=== PATIENT | male | born 1950 | race Caucasian/White ===

== ENCOUNTER 2017-02-12 10:00 | Emergency (ER) | payer MEDICARE, OTHER ==
--- NOTE | 2017-02-12 10:30 | ERPHSYRPT ---
- History of Present Illness Time Seen by Provider: 02/12/17 10:19 Source: patient, EMS Patient Subjective Stated Complaint: PT WOKE UP WITH MORNING AND COULD NOT GET OUT OF BED. DENIES ANY PAIN AT THIS TIME. PT STATES HE WAS SLIGHTLY CONFUSED THIS MORNING. Triage Nursing Assessment: PT IS ALERT X 2. SKIN IS PINK WARM AND DRY. RESP ARE EVEN AND UNLABORED. SKIN GRASP ARE NORMAL AND EQUAL. WEAKNESS NOTED IN FOOT PUSHES. Physician History: Patient is a 67-year-old male brought in by ambulance from home where the home health nurse saw the patient this morning and thought he needed to be seen for weakness. The patient tells me he woke up this morning with weakness in his legs, feels he was able to stand very well. He denies fever or chills. He denies pain. He denies cough, nausea, vomiting, or diarrhea. He states he has problems urinating due to his prostate. His past medical history is significant for hypertension, BPH, GERD, and 2 strokes last year. He's had his appendectomy the next removed. Timing/Duration: today Severity: moderate Modifying Factors: Improves With: nothing Associated Symptoms: weakness Allergies/Adverse Reactions: No Known Drug Allergies Allergy (Unverified 02/12/17 10:22) Home Medications: Aspirin [Aspir-Low] 81 mg PO DAILY 02/12/17 [History] Lansoprazole [Prevacid] 30 mg PO DAILY 02/12/17 [History] Lisinopril [Lisinopril] 5 mg PO DAILY 02/12/17 [History] Min17/Nettle/Pumpkin/Saw Palme [Prostate Therapy Softgel] 1 each PO DAILY [History] Hx Tetanus, Diphtheria Vaccination/Date Given: Yes Hx Influenza Vaccination/Date Given: Yes (2016) Hx Pneumococcal Vaccination/Date Given: No Immunizations Up to Date: Yes - Review of Systems Constitutional: Weakness Eyes: No Symptoms Ears, Nose, & Throat: No Symptoms Respiratory: No Cough, No Dyspnea Cardiac: No Chest Pain, No Edema, No Syncope Abdominal/Gastrointestinal: No Abdominal Pain, No Nausea, No Vomiting, No Diarrhea Genitourinary Symptoms: No Dysuria Musculoskeletal: No Back Pain, No Neck Pain Skin: No Rash Neurological: No Dizziness, No Focal Weakness, No Sensory Changes Psychological: No Symptoms Endocrine: No Symptoms Hematologic/Lymphatic: No Symptoms Immunological/Allergic: No Symptoms All Other Systems: Reviewed and Negative - Past Medical History Pertinent Past Medical History: Yes Neurological History: Stroke ENT History: No Pertinent History Cardiac History: Hypertension Respiratory History: No Pertinent History Endocrine Medical History: No Pertinent History Musculoskeletal History: No Pertinent History GI Medical History: GERD History: No Pertinent History Psycho-Social History: No Pertinent History Male Reproductive Disorders: Prostate Problems - Past Surgical History Past Surgical History: Yes Neuro Surgical History: No Pertinent History Cardiac: No Pertinent History Respiratory: No Pertinent History Gastrointestinal: Appendectomy Genitourinary: No Pertinent History Musculoskeletal: No Pertinent History Male Surgical History: No Pertinent History - Social History Smoking Status: Former smoker Exposure to second hand smoke: No Drug Use: none Patient Lives Alone: No - Nursing Vital Signs Nursing Vital Signs: Initial Vital Signs Temperature 98.1 F 02/12/17 10:02 Pulse Rate 71 02/12/17 10:02 Respiratory Rate 18 02/12/17 10:02 Blood Pressure 127/83 02/12/17 10:02 O2 Sat by Pulse Oximetry 93 L 02/12/17 10:02 Pain Scale Pain Intensity 0 - Physical Exam General Appearance: no apparent distress, alert Eye Exam: PERRL/EOMI, eyes nml inspection Ears, Nose, Throat Exam: normal ENT inspection, TMs normal, pharynx normal, moist mucous membranes Neck Exam: normal inspection, non-tender, supple, full range of motion Respiratory Exam: normal breath sounds, lungs clear, No respiratory distress Cardiovascular Exam: regular rate/rhythm, normal heart sounds, normal peripheral pulses Rectal Exam: not done Back Exam: normal inspection, normal range of motion, No CVA tenderness, No vertebral tenderness Extremity Exam: normal inspection, normal range of motion, pelvis stable Neurologic Exam: alert, oriented x 3, sr. director II-XII nml as tested, normal mood/ affect, nml cerebellar function, sensation nml, other (short term memory loss), No motor deficits, No sensory deficit Skin Exam: normal color, warm, dry, No rash Lymphatic Exam: No adenopathy SpO2 Interpretation: normal SpO2: 93 Oxygen Delivery: Room Air - Course EKG Interpreted by Me: RATE, Sinus Rhythm, NORMAL AXIS, NORMAL INTERVALS, NORMAL QRS, Non-specific ST Changes (no comp EKG/) - CT Exams Head CT Interpretation: Negative, Tele-radiologist Report, No/Intracranial Hemorrhag , Other (global atrophy, micro-ischemia, remote right cerebellar infarct and lacunar infarcts. Per Dr Priutt.) Ordered Tests: Active Orders 24 hr Category Date Time Status EKG-ER Only STAT Care 02/12/17 10:33 Active IV Insertion STAT Care 02/12/17 10:33 Active HEAD WITHOUT CONTRAST [CT] Stat Exams 02/12/17 10:35 Completed CBC W DIFF Stat Lab 02/12/17 11:30 Completed CMP Stat Lab 02/12/17 11:30 Completed CULTURE,URINE Stat Lab 02/12/17 12:00 Received Lactic Acid Stat Lab 02/12/17 10:33 Completed PROTIME WITH INR Stat Lab 02/12/17 11:30 Completed TROPONIN Q3H Lab 02/12/17 11:30 Completed TROPONIN Q3H Lab 02/12/17 13:45 Ordered TROPONIN Q3H Lab 02/12/17 16:45 Ordered TROPONIN Q3H Lab 02/12/17 19:45 Ordered TROPONIN Q3H Lab 02/12/17 22:45 Ordered UA W/ MICROSCOPIC Stat Lab 02/12/17 12:00 Completed Urine Triage Profile Stat Lab 02/12/17 10:34 Completed Medication Summary Discontinued Medications Generic Name Dose Route Start Last Admin Trade Name Freq PRN Reason Stop Dose Admin Sodium Chloride 1,000 mls @ 999 mls/hr 02/12/17 10:33 02/12/17 10:41 Sodium Chloride 0.9% 1000 Ml IV 02/12/17 11:33 999 mls/hr .Q1H1M STA Administration Sodium Chloride Confirm 02/12/17 10:40 Sodium Chloride 0.9% 1000 Ml Administered 02/12/17 10:41 Dose 1,000 mls @ ud .ROUTE .STK-MED ONE Ceftriaxone Sodium/Dextrose 1 g in 50 mls @ 100 mls/hr 02/12/17 12:40 12:46 Rocephin 1 Gm-D5w 50 Ml Bag IV 02/12/17 13:09 100 mls/hr STAT STA Administration Ceftriaxone Sodium/Dextrose Confirm 02/12/17 12:45 Rocephin 1 Gm-D5w 50 Ml Bag Administered 02/12/17 12:46 Dose 1 g in 50 mls @ ud IV .STK-MED ONE Lab/Rad Data: Laboratory Result Diagrams 02/12/17 11:30 02/12/17 11:30 Laboratory Results 02/12/17 02/12/17 02/12/17 Range/Units 12:00 11:30 11:30 WBC (4.0-10.5) K/mm3 RBC (4.1-5.6) M/mm3 Hgb (12.5-18.0) gm/dl Hct (42-50) % MCV (78-100) fl MCH (26-32) pg MCHC (32-36) g/dl RDW (11.5-14.0) % Plt Count (150-450) K/mm3 MPV (6-9.5) fl Gran % (36.0-66.0) % Lymphocytes % (24.0-44.0) % Monocytes % (0.0-12.0) % Eosinophils % (0.00-5.0) % Basophils % (0.0-0.4) % Basophils # (0-0.4) INR 1.34 (0.8-3.0) Sodium (136-145) mEq/L Potassium (3.5-5.1) mEq/L Chloride (98-107) mEq/L Carbon Dioxide (21-32) mEq/L Anion Gap (5-15) MEQ/L BUN (9-20) mg/dL Creatinine (0.55-1.30) mg/dl Estimated GFR ML/MIN Glucose (70-110) MG/DL Lactic Acid (0.4-2.0) Calcium (8.5-10.1) mg/dL Total Bilirubin (0.2-1.0) mg/dL AST (15-37) U/L ALT (12-78) U/L Alkaline Phosphatase (46-116) U/L Troponin I 0.035 (0.000-0.056) ng/ml Serum Total Protein (6.4-8.2) gm/dL Albumin (3.4-5.0) g/dL Ur Collection Type VOID Urine Color DARK YELLOW (YELLOW) Urine Appearance CLEAR (CLEAR) Urine pH 5.0 (5-6) Ur Specific [place] 1.030 (1.005-1.025) Urine Protein 3+ (Negative) Urine Ketones MODERATE (NEGATIVE) Urine Blood 250 (0-5) Stone/ul Urine Nitrite NEGATIVE (NEGATIVE) Urine Bilirubin NEGATIVE (NEGATIVE) Urine Urobilinogen NORMAL (0-1) mg/dL Ur Leukocyte Esterase TRACE (NEGATIVE) Urine Microscopic RBC 0-2 (0-2) /HPF Urine Microscopic WBC 5-10 (0-5) /HPF Ur Epithelial Cells RARE (FEW) /HPF Urine Bacteria MODERATE (NEGATIVE) /HPF Urine Culture Reflexed YES (NO) Urine Glucose 50 (NEGATIVE) mg/dL Urine Opiates Level (NEGATIVE) Ur Methadone (NEGATIVE) Urine Barbiturates (NEGATIVE) Ur Phencyclidine (PCP) (NEGATIVE) Urine Amphetamine (NEGATIVE) U Benzodiazepine Level (NEGATIVE) Urine Cocaine (NEGATIVE) Urine Marijuana (THC) (NEGATIVE) Specimen Received 02/12/17 1200 02/12/17 02/12/17 02/12/17 Range/Units 11:30 11:30 10:34 WBC 12.9 H (4.0-10.5) K/mm3 RBC 5.38 (4.1-5.6) M/mm3 Hgb 16.1 (12.5-18.0) gm/dl Hct 48.9 (42-50) % MCV 90.9 (78-100) fl MCH 29.9 (26-32) pg MCHC 32.9 (32-36) g/dl RDW 13.6 (11.5-14.0) % Plt Count 223 (150-450) K/mm3 MPV 11.0 H (6-9.5) fl Gran % 80.3 H (36.0-66.0) % Lymphocytes % 9.8 L (24.0-44.0) % Monocytes % 9.6 (0.0-12.0) % Eosinophils % 0.1 (0.00-5.0) % Basophils % 0.2 (0.0-0.4) % Basophils # 0.03 (0-0.4) INR (0.8-3.0) Sodium 134 L (136-145) mEq/L Potassium 4.1 (3.5-5.1) mEq/L Chloride 103 (98-107) mEq/L Carbon Dioxide 21.6 (21-32) mEq/L Anion Gap 13.9 (5-15) MEQ/L BUN 33 H (9-20) mg/dL Creatinine 1.74 H (0.55-1.30) mg/dl Estimated GFR 42 ML/MIN Glucose 177 H (70-110) MG/DL Lactic Acid (0.4-2.0) Calcium 9.5 (8.5-10.1) mg/dL Total Bilirubin 2.00 H (0.2-1.0) mg/dL AST 16 (15-37) U/L ALT 21 (12-78) U/L Alkaline Phosphatase 69 (46-116) U/L Troponin I (0.000-0.056) ng/ml Serum Total Protein 8.1 (6.4-8.2) gm/dL Albumin 3.1 L (3.4-5.0) g/dL Ur Collection Type Urine Color (YELLOW) Urine Appearance (CLEAR) Urine pH (5-6) Ur Specific [place] (1.005-1.025) Urine Protein (Negative) Urine Ketones (NEGATIVE) Urine Blood (0-5) Stone/ul Urine Nitrite (NEGATIVE) Urine Bilirubin (NEGATIVE) Urine Urobilinogen (0-1) mg/dL Ur Leukocyte Esterase (NEGATIVE) Urine Microscopic RBC (0-2) /HPF Urine Microscopic WBC (0-5) /HPF Ur Epithelial Cells (FEW) /HPF Urine Bacteria (NEGATIVE) /HPF Urine Culture Reflexed (NO) Urine Glucose (NEGATIVE) mg/dL Urine Opiates Level NEG. (NEGATIVE) Ur Methadone NEG. (NEGATIVE) Urine Barbiturates NEG. (NEGATIVE) Ur Phencyclidine (PCP) NEG. (NEGATIVE) Urine Amphetamine NEG. (NEGATIVE) U Benzodiazepine Level NEG. (NEGATIVE) Urine Cocaine NEG. (NEGATIVE) Urine Marijuana (THC) NEG. (NEGATIVE) Specimen Received 02/12/17 Range/Units 10:33 WBC (4.0-10.5) K/mm3 RBC (4.1-5.6) M/mm3 Hgb (12.5-18.0) gm/dl Hct (42-50) % MCV (78-100) fl MCH (26-32) pg MCHC (32-36) g/dl RDW (11.5-14.0) % Plt Count (150-450) K/mm3 MPV (6-9.5) fl Gran % (36.0-66.0) % Lymphocytes % (24.0-44.0) % Monocytes % (0.0-12.0) % Eosinophils % (0.00-5.0) % Basophils % (0.0-0.4) % Basophils # (0-0.4) INR (0.8-3.0) Sodium (136-145) mEq/L Potassium (3.5-5.1) mEq/L Chloride (98-107) mEq/L Carbon Dioxide (21-32) mEq/L Anion Gap (5-15) MEQ/L BUN (9-20) mg/dL Creatinine (0.55-1.30) mg/dl Estimated GFR ML/MIN Glucose (70-110) MG/DL Lactic Acid 1.6 (0.4-2.0) Calcium (8.5-10.1) mg/dL Total Bilirubin (0.2-1.0) mg/dL AST (15-37) U/L ALT (12-78) U/L Alkaline Phosphatase (46-116) U/L Troponin I (0.000-0.056) ng/ml Serum Total Protein (6.4-8.2) gm/dL Albumin (3.4-5.0) g/dL Ur Collection Type Urine Color (YELLOW) Urine Appearance (CLEAR) Urine pH (5-6) Ur Specific [place] (1.005-1.025) Urine Protein (Negative) Urine Ketones (NEGATIVE) Urine Blood (0-5) Stone/ul Urine Nitrite (NEGATIVE) Urine Bilirubin (NEGATIVE) Urine Urobilinogen (0-1) mg/dL Ur Leukocyte Esterase (NEGATIVE) Urine Microscopic RBC (0-2) /HPF Urine Microscopic WBC (0-5) /HPF Ur Epithelial Cells (FEW) /HPF Urine Bacteria (NEGATIVE) /HPF Urine Culture Reflexed (NO) Urine Glucose (NEGATIVE) mg/dL Urine Opiates Level (NEGATIVE) Ur Methadone (NEGATIVE) Urine Barbiturates (NEGATIVE) Ur Phencyclidine (PCP) (NEGATIVE) Urine Amphetamine (NEGATIVE) U Benzodiazepine Level (NEGATIVE) Urine Cocaine (NEGATIVE) Urine Marijuana (THC) (NEGATIVE) Specimen Received - Progress Progress: improved Counseled pt/family regarding: lab results, diagnosis, need for follow-up - Departure Time of Disposition: 13:14 Departure Disposition: Home Clinical Impression: UTI (urinary tract infection), Dehydration Condition: Stable Critical Care Time: No Referrals: LANDRY LUCIA MD [Primary Care Provider] - Additional Instructions: You have weakness and mild confusion that was likely caused by a UTI. You also had some dehydration. You were given Rocephin 1 g and fluids by IV in the ER. Take ciprofloxacin 500 mg 2 times a day for 10 days. Follow-up with your primary care doctor in 1-2 days. Prescriptions: Ciprofloxacin [Cipro 500 MG] 1 tab PO BID #20 tablet
[2017-02-12] MEDS ORDERED: Sodium Chloride 0.9% 1000 ML 1,000 ML IV STA (10:33)
[2017-02-12] MEDS ORDERED: Sodium Chloride 0.9% 1000 ML 1,000 ML ONE (10:40)
--- NOTE | 2017-02-12 11:20 | XRAY ---
Indication: Confusion and weakness. Multiple contiguous axial images obtained through the head without contrast. Comparison: None Several images are degraded by motion artifact even with repeat CT. There is age-appropriate global atrophy and moderate periventricular degenerative micro-ischemia bilaterally. Remote appearing right cerebellar infarct, remote left pontine lacunar infarct, and remote right internal capsule lacunar infarct. No gross acute intracranial hemorrhage, abnormal extra fluid collection, or mass effect. Fourth ventricle is midline. Bony calvarium grossly intact. Visualized paranasal sinuses and mastoid air cells are clear. Impression: 1. Limited exam due to motion artifact. 2. Global atrophy, degenerative micro-ischemia, remote right cerebellar infarct, and remote lacunar infarcts of the sharon and right internal capsule. 3. No gross acute intracranial abnormalities. CTDI 69.38
[2017-02-12 11:39] LABS: BASOPHIL % 0.2 % (0.0-0.4); Eosinophil % 0.1 % (0.00-5.0); Granulocytes % 80.3 % (36.0-66.0); Lymphocytes % 9.8 % (24.0-44.0); Mean Cell Volume 90.9 fl (78-100); Mean Corpuscular Hemoglobin 29.9 pg (26-32); Monocytes % 9.6 % (0.0-12.0); Platelet Count 223 K/mm3 (150-450); Red Blood Count 5.38 M/mm3 (4.1-5.6); Red Cell Distribution Width 13.6 % (11.5-14.0); White Blood Count 12.9 K/mm3 (4.0-10.5)
[2017-02-12 12:08] LABS: ALBUMIN 3.1 g/dL (3.4-5.0); ANION GAP 13.9 MEQ/L (5-15); Carbon Dioxide 21.6 mEq/L (21-32); Potassium 4.1 mEq/L (3.5-5.1); Total Protein 8.1 gm/dL (6.4-8.2)
[2017-02-12 12:22] LABS: Collection Type VOID
[2017-02-12 12:23] LABS: ADD URINE CULTURE? YES (NO); Bacteria MODERATE /HPF (NEGATIVE); Bilirubin NEGATIVE (NEGATIVE); Blood 250 Ery/ul (0-5); COMPLETE URINE MICROSCOPIC? YES; Epithelial Cells RARE /HPF (FEW); Glucose 50 mg/dL (NEGATIVE); Leukocyte Esterase TRACE (NEGATIVE)
[2017-02-12 12:28] LABS: INR 1.34 (0.8-3.0); PROTIME 14.9 SECONDS (8.83-12.87)
[2017-02-12] MEDS ORDERED: ROCEPHIN 1 Gm-D5w 50 ml Bag** 1 G/50 ML IVPB IV STA (12:40)
[2017-02-12] MEDS ORDERED: ROCEPHIN 1 Gm-D5w 50 ml Bag** 1 G/50 ML IVPB IV ONE (12:45)
[2017-02-12 13:02] VITALS: PULSE 79
[2017-02-12 13:16] VITALS: O2SAT 93
[2017-02-12 14:36] VITALS: BP 110/90
== END 2017-02-12 14:50 | disposition home or self-care (01) ==
LOC: ED 10:00
DX: N39.0 Urinary tract infection, site not specified (principal); E86.0 Dehydration; I10 Essential (primary) hypertension; N40.0 Benign prostatic hyperplasia without lower urinary tract symptoms; K21.9 Gastro-esophageal reflux disease without esophagitis; Z79.899 Other long term (current) drug therapy
CPT/HCPCS: 36415; 70450; 80053; 80307; 81000; 83605; 84484; 85025; 85610; 87086; 93005; 96360; 96365; 96366; 99284; J0696

== ENCOUNTER 2017-08-16 13:14 | Observation (INO) | payer MEDICARE, OTHER ==
[2017-08-16] MEDS ORDERED: Sodium Chloride 0.9% 1000 ML 1,000 ML IV SCH (13:45)
[2017-08-16 13:50] LABS: BASOPHIL % 0.4 % (0.0-0.4); Basophil (Absolute #) 0.03 (0-0.4); Eosinophil % 3.2 % (0.00-5.0); Eosinophil (Absolute #) 0.22 (0-0.5); Granulocyte Absolute (ANC) 3.61 (1.4-6.9); Granulocytes % 52.2 % (36.0-66.0); Hemoglobin 16.1 gm/dl (12.5-18.0); Lymphocyte (Absolute #) 2.28 (1.0-4.6); Lymphocytes % 32.9 % (24.0-44.0); Mean Cell Volume 91.1 fl (78-100); Mean Corpuscular Hemoglobin 31.2 pg (26-32); Mean Corpuscular Hgb Concent. 34.3 g/dl (32-36); Mean Platelet Volume 10.2 fl (6-9.5); Monocyte (Absolute #) 0.78 (0.0-1.3); Monocytes % 11.3 % (0.0-12.0); Platelet Count 236 K/mm3 (150-450); Red Blood Count 5.16 M/mm3 (4.1-5.6); White Blood Count 6.9 K/mm3 (4.0-10.5)
--- NOTE | 2017-08-16 13:52 | ERPHSYRPT ---
- History of Present Illness Time Seen by Provider: 08/16/17 13:20 Source: patient, family Exam Limitations: no limitations Patient Subjective Stated Complaint: pt reports fullness to the abdomen, pt reports not feeling well. denies any other symptoms. pt denies any toileting difficulties. Triage Nursing Assessment: pt is aox3, pupils perrl, resps easy and non labored , pt afebrile, abd is soft and non tender bowel sounds are present and normoactive x4, abdominal fullness reported at the level of the umbilicus. Physician History: According to his son, patient has not been able to get out to his bed since yesterday due to generalized weakness. He denies any fall, patient denies any injuries, or pain, except "fullness" of his abdomen "for a while". He denies vomiting, chest pain, SOB, fever, other complaints. Pt is weak historian in general, but family denies history of Dementia, apparently he was treated few months ago with stroke in [facility]. Timing/Duration: yesterday Severity: moderate Modifying Factors: Improves With: nothing Associated Symptoms: denies symptoms Allergies/Adverse Reactions: No Known Drug Allergies Allergy (Verified 08/16/17 13:25) Home Medications: Amlodipine Besylate [Amlodipine Besylate] 5 mg PO DAILY 08/16/17 [History] Aspirin 81 gm Chew [Baby Aspirin 81 mg Chew] 81 mg PO DAILY 08/16/17 [ History] Atorvastatin Calcium 80 mg PO DAILY 08/16/17 [History] Clopidogrel Bisulfate [Clopidogrel] 75 mg PO DAILY 08/16/17 [History] Famotidine [Famotidine] 20 mg PO DAILY 08/16/17 [History] Tamsulosin HCl [Tamsulosin HCl] 0.4 mg PO DAILY 08/16/17 [History] Hx Tetanus, Diphtheria Vaccination/Date Given: Yes Hx Influenza Vaccination/Date Given: No Hx Pneumococcal Vaccination/Date Given: No Immunizations Up to Date: Yes - Review of Systems Constitutional: No Symptoms Abdominal/Gastrointestinal: Abdominal Pain All Other Systems: Unable due to dementia - Past Medical History Pertinent Past Medical History: Yes Neurological History: Stroke ENT History: No Pertinent History Cardiac History: Hypertension Respiratory History: No Pertinent History Endocrine Medical History: No Pertinent History Musculoskeletal History: No Pertinent History GI Medical History: GERD History: No Pertinent History Psycho-Social History: No Pertinent History Male Reproductive Disorders: Prostate Problems - Past Surgical History Past Surgical History: Yes Neuro Surgical History: No Pertinent History Cardiac: No Pertinent History Respiratory: No Pertinent History Gastrointestinal: Appendectomy Genitourinary: No Pertinent History Musculoskeletal: No Pertinent History Male Surgical History: No Pertinent History - Social History Smoking Status: Former smoker Exposure to second hand smoke: No Drug Use: none Patient Lives Alone: No - Nursing Vital Signs Nursing Vital Signs: Initial Vital Signs Temperature 98.2 F 08/16/17 13:15 Pulse Rate 70 08/16/17 13:15 Respiratory Rate 20 08/16/17 13:15 Blood Pressure 129/77 08/16/17 13:15 O2 Sat by Pulse Oximetry 95 08/16/17 13:15 Pain Scale Pain Intensity 0 - Physical Exam General Appearance: no apparent distress Eye Exam: PERRL/EOMI, eyes nml inspection Ears, Nose, Throat Exam: normal ENT inspection, pharynx normal, moist mucous membranes Neck Exam: normal inspection, non-tender, supple, No mass, No carotid bruit, No JVD Respiratory Exam: normal breath sounds, lungs clear, airway intact, No chest tenderness, No respiratory distress Cardiovascular Exam: regular rate/rhythm, normal heart sounds, normal peripheral pulses, No murmur Gastrointestinal/Abdomen Exam: soft, normal bowel sounds, No tenderness, No distention, No mass, No ecchymosis, No pulsatile mass, No rebound Rectal Exam: normal rectal tone, other (large amount of soft stool, guaiac sent) , No mass, No black stool, No blood, No tenderness Back Exam: normal inspection, No CVA tenderness Extremity Exam: normal inspection Neurologic Exam: alert, other (partly oriented to person and place, but not to time.) Skin Exam: normal color, warm, dry, No rash Lymphatic Exam: No adenopathy SpO2 Interpretation: normal SpO2: 95 Oxygen Delivery: Room Air - Course Nursing assessment & vital signs reviewed: Yes EKG Interpreted by Me: RATE (72/min), NORMAL AXIS, NORMAL INTERVALS, Non- specific ST Changes, Other (few PVC-s, unchanged from 02/12/17) - Radiology Exams Chest X-ray Interpretation: Interpreted by me, Negative - CT Exams Head CT Interpretation: Tele-radiologist Report, Other (Hypedense in appearance basilar artery which similar in density as the MCA, whuich is likely artifactual , much less likely this could be indicative of thrombosis.) Abdomen/Pelvis CT Interpretation: Tele-radiologist Report, Other (Distended rectum measures 7.2x8.9 cm containing large volume feces like material suggests consipation.) Ordered Tests: Active Orders 24 hr Category Date Time Status EKG-ER Only STAT Care 08/16/17 13:34 Active [place] [Catheter-[place] Beckford] STAT Care 08/16/17 15:56 Active IV Insertion STAT Care 08/16/17 13:34 Active ABDOMEN AND PELVIS W/0 CONTRAS [CT] Stat Exams 08/16/17 13:36 Taken CHEST 1 VIEW (PORTABLE) Stat Exams 08/16/17 13:35 Taken HEAD WITHOUT CONTRAST [CT] Stat Exams 08/16/17 13:36 Taken AMYLASE Stat Lab 08/16/17 13:45 Completed CBC W DIFF Stat Lab 08/16/17 13:45 Completed CK-Creatinine Phosphokinase Stat Lab 08/16/17 13:45 Completed CMP Stat Lab 08/16/17 13:45 Completed CULTURE,URINE Stat Lab 08/16/17 15:58 Received ETHYL ALCOHOL Stat Lab 08/16/17 13:45 Completed LIPASE Stat Lab 08/16/17 13:45 Completed Lactic Acid Stat Lab 08/16/17 13:34 Completed MAGNESIUM Stat Lab 08/16/17 13:45 Completed NT PRO BNP Stat Lab 08/16/17 13:45 Completed Occult Blood,Stool Other Stat Lab 08/16/17 15:58 Completed PROTIME WITH INR Stat Lab 08/16/17 13:45 Completed TROPONIN Q3H Lab 08/16/17 13:45 Completed TROPONIN Q3H Lab 08/16/17 16:45 Ordered TROPONIN Q3H Lab 08/16/17 19:45 Ordered TROPONIN Q3H Lab 08/16/17 22:45 Ordered TROPONIN Q3H Lab 08/17/17 01:45 Ordered UA W/ MICROSCOPIC Stat Lab 08/16/17 15:58 Completed Urine Triage Profile Stat Lab 08/16/17 15:58 Completed Medication Summary Generic Name Dose Route Start Last Admin Trade Name Freq PRN Reason Stop Dose Admin Sodium Chloride 1,000 mls @ 100 mls/hr 08/16/17 13:45 08/16/17 14:24 Sodium Chloride 0.9% 1000 Ml IV 09/15/17 13:44 100 mls/hr .Q10H TERESA Administration Lab/Rad Data: Laboratory Result Diagrams 08/16/17 13:45 08/16/17 13:45 Laboratory Results 08/16/17 08/16/17 08/16/17 Range/Units 15:58 15:58 15:58 WBC (4.0-10.5) K/mm3 RBC (4.1-5.6) M/mm3 Hgb (12.5-18.0) gm/dl Hct (42-50) % MCV (78-100) fl MCH (26-32) pg MCHC (32-36) g/dl RDW (11.5-14.0) % Plt Count (150-450) K/mm3 MPV (6-9.5) fl Gran % (36.0-66.0) % Eos # (Auto) (0-0.5) Absolute Lymphs (auto) (1.0-4.6) Absolute Monos (auto) (0.0-1.3) Lymphocytes % (24.0-44.0) % Monocytes % (0.0-12.0) % Eosinophils % (0.00-5.0) % Basophils % (0.0-0.4) % Absolute Granulocytes (1.4-6.9) Basophils # (0-0.4) PT (8.83-12.87) SECONDS INR (0.8-3.0) Sodium (137-145) mmol/L Potassium (3.5-5.1) mmol/L Chloride (98-107) mmol/L Carbon Dioxide (22-30) mmol/L Anion Gap (5-15) MEQ/L BUN (9-20) mg/dL Creatinine (0.66-1.25) mg/dL Estimated GFR ML/MIN Glucose (74-106) mg/dL Lactic Acid (0.4-2.0) Calcium (8.4-10.2) mg/dL Magnesium (1.6-2.3) mg/dL Total Bilirubin (0.2-1.3) mg/dL AST (17-59) U/L ALT (0-50) U/L Alkaline Phosphatase (38-126) U/L Creatine Kinase (55-170) U/L Troponin I (0.000-0.034) ng/mL NT-Pro-B Natriuret Pep (0-900) pg/mL Serum Total Protein (6.3-8.2) g/dL Albumin (3.5-5.0) g/dL Amylase (30-110) U/L Lipase (23-300) U/L Ur Collection Type VOID Urine Color YELLOW (YELLOW) Urine Appearance CLEAR (CLEAR) Urine pH 5.0 (5-6) Ur Specific [place] 1.025 (1.005-1.025) Urine Protein 30 (Negative) Urine Ketones NEGATIVE (NEGATIVE) Urine Blood 250 (0-5) Stone/ul Urine Nitrite NEGATIVE (NEGATIVE) Urine Bilirubin NEGATIVE (NEGATIVE) Urine Urobilinogen NORMAL (0-1) mg/dL Ur Leukocyte Esterase NEGATIVE (NEGATIVE) Urine Microscopic RBC 10-15 (0-2) /HPF Urine Microscopic WBC 0-2 (0-5) /HPF Ur Epithelial Cells RARE (FEW) /HPF Urine Bacteria RARE (NEGATIVE) /HPF Urine Mucus SLIGHT (NEGATIVE) /HPF Urine Culture Reflexed YES (NO) Urine Glucose NEGATIVE (NEGATIVE) mg/dL Stool Occult Blood NEGATIVE (Negative) Urine Opiates Level NEGATIVE (NEGATIVE) Ur Methadone NEGATIVE (NEGATIVE) Urine Barbiturates NEGATIVE (NEGATIVE) Ur Phencyclidine (PCP) NEGATIVE (NEGATIVE) Urine Amphetamine NEGATIVE (NEGATIVE) U Benzodiazepine Level NEGATIVE (NEGATIVE) Urine Cocaine NEGATIVE (NEGATIVE) Urine Marijuana (THC) NEGATIVE (NEGATIVE) Ethyl Alcohol (0-10) mg/dL Specimen Received 08/16/17 1600 08/16/17 08/16/17 08/16/17 Range/Units 13:45 13:45 13:45 WBC (4.0-10.5) K/mm3 RBC (4.1-5.6) M/mm3 Hgb (12.5-18.0) gm/dl Hct (42-50) % MCV (78-100) fl MCH (26-32) pg MCHC (32-36) g/dl RDW (11.5-14.0) % Plt Count (150-450) K/mm3 MPV (6-9.5) fl Gran % (36.0-66.0) % Eos # (Auto) (0-0.5) Absolute Lymphs (auto) (1.0-4.6) Absolute Monos (auto) (0.0-1.3) Lymphocytes % (24.0-44.0) % Monocytes % (0.0-12.0) % Eosinophils % (0.00-5.0) % Basophils % (0.0-0.4) % Absolute Granulocytes (1.4-6.9) Basophils # (0-0.4) PT 12.3 (8.83-12.87) SECONDS INR 1.06 (0.8-3.0) Sodium 145 (137-145) mmol/L Potassium 3.8 (3.5-5.1) mmol/L Chloride 106 (98-107) mmol/L Carbon Dioxide 26 (22-30) mmol/L Anion Gap 17.4 H (5-15) MEQ/L BUN 22 H (9-20) mg/dL Creatinine 0.94 (0.66-1.25) mg/dL Estimated GFR > 60.0 ML/MIN Glucose 127 H (74-106) mg/dL Lactic Acid (0.4-2.0) Calcium 9.9 (8.4-10.2) mg/dL Magnesium 1.9 (1.6-2.3) mg/dL Total Bilirubin 1.90 H (0.2-1.3) mg/dL AST 17 (17-59) U/L ALT 24 (0-50) U/L Alkaline Phosphatase 86 (38-126) U/L Creatine Kinase 58 (55-170) U/L Troponin I < 0.012 (0.000-0.034) ng/mL NT-Pro-B Natriuret Pep 62.2 (0-900) pg/mL Serum Total Protein 7.7 (6.3-8.2) g/dL Albumin 4.4 (3.5-5.0) g/dL Amylase 118 H (30-110) U/L Lipase 129 (23-300) U/L Ur Collection Type Urine Color (YELLOW) Urine Appearance (CLEAR) Urine pH (5-6) Ur Specific [place] (1.005-1.025) Urine Protein (Negative) Urine Ketones (NEGATIVE) Urine Blood (0-5) Stone/ul Urine Nitrite (NEGATIVE) Urine Bilirubin (NEGATIVE) Urine Urobilinogen (0-1) mg/dL Ur Leukocyte Esterase (NEGATIVE) Urine Microscopic RBC (0-2) /HPF Urine Microscopic WBC (0-5) /HPF Ur Epithelial Cells (FEW) /HPF Urine Bacteria (NEGATIVE) /HPF Urine Mucus (NEGATIVE) /HPF Urine Culture Reflexed (NO) Urine Glucose (NEGATIVE) mg/dL Stool Occult Blood (Negative) Urine Opiates Level (NEGATIVE) Ur Methadone (NEGATIVE) Urine Barbiturates (NEGATIVE) Ur Phencyclidine (PCP) (NEGATIVE) Urine Amphetamine (NEGATIVE) U Benzodiazepine Level (NEGATIVE) Urine Cocaine (NEGATIVE) Urine Marijuana (THC) (NEGATIVE) Ethyl Alcohol < 10 (0-10) mg/dL Specimen Received 08/16/17 08/16/17 Range/Units 13:45 13:34 WBC 6.9 (4.0-10.5) K/mm3 RBC 5.16 (4.1-5.6) M/mm3 Hgb 16.1 (12.5-18.0) gm/dl Hct 47.0 (42-50) % MCV 91.1 (78-100) fl MCH 31.2 (26-32) pg MCHC 34.3 (32-36) g/dl RDW 14.0 (11.5-14.0) % Plt Count 236 (150-450) K/mm3 MPV 10.2 H (6-9.5) fl Gran % 52.2 (36.0-66.0) % Eos # (Auto) 0.22 (0-0.5) Absolute Lymphs (auto) 2.28 (1.0-4.6) Absolute Monos (auto) 0.78 (0.0-1.3) Lymphocytes % 32.9 (24.0-44.0) % Monocytes % 11.3 (0.0-12.0) % Eosinophils % 3.2 (0.00-5.0) % Basophils % 0.4 (0.0-0.4) % Absolute Granulocytes 3.61 (1.4-6.9) Basophils # 0.03 (0-0.4) PT (8.83-12.87) SECONDS INR (0.8-3.0) Sodium (137-145) mmol/L Potassium (3.5-5.1) mmol/L Chloride (98-107) mmol/L Carbon Dioxide (22-30) mmol/L Anion Gap (5-15) MEQ/L BUN (9-20) mg/dL Creatinine (0.66-1.25) mg/dL Estimated GFR ML/MIN Glucose (74-106) mg/dL Lactic Acid 1.4 (0.4-2.0) Calcium (8.4-10.2) mg/dL Magnesium (1.6-2.3) mg/dL Total Bilirubin (0.2-1.3) mg/dL AST (17-59) U/L ALT (0-50) U/L Alkaline Phosphatase (38-126) U/L Creatine Kinase (55-170) U/L Troponin I (0.000-0.034) ng/mL NT-Pro-B Natriuret Pep (0-900) pg/mL Serum Total Protein (6.3-8.2) g/dL Albumin (3.5-5.0) g/dL Amylase (30-110) U/L Lipase (23-300) U/L Ur Collection Type Urine Color (YELLOW) Urine Appearance (CLEAR) Urine pH (5-6) Ur Specific [place] (1.005-1.025) Urine Protein (Negative) Urine Ketones (NEGATIVE) Urine Blood (0-5) Stone/ul Urine Nitrite (NEGATIVE) Urine Bilirubin (NEGATIVE) Urine Urobilinogen (0-1) mg/dL Ur Leukocyte Esterase (NEGATIVE) Urine Microscopic RBC (0-2) /HPF Urine Microscopic WBC (0-5) /HPF Ur Epithelial Cells (FEW) /HPF Urine Bacteria (NEGATIVE) /HPF Urine Mucus (NEGATIVE) /HPF Urine Culture Reflexed (NO) Urine Glucose (NEGATIVE) mg/dL Stool Occult Blood (Negative) Urine Opiates Level (NEGATIVE) Ur Methadone (NEGATIVE) Urine Barbiturates (NEGATIVE) Ur Phencyclidine (PCP) (NEGATIVE) Urine Amphetamine (NEGATIVE) U Benzodiazepine Level (NEGATIVE) Urine Cocaine (NEGATIVE) Urine Marijuana (THC) (NEGATIVE) Ethyl Alcohol (0-10) mg/dL Specimen Received - Progress Progress: unchanged Progress Note: 08/16/17 16:[address] Ling, covering for dr Lucia, discussed all our results, and this patient's current condition, he agreed to admit him for further care, and tests , pt farzad his family informed, they agreed. Discussed with : Danish Will see patient in: hospital (full admit) Counseled pt/family regarding: lab results, diagnosis, rad results - Departure Time of Disposition: 16:47 Departure Disposition: In-patient Admission Clinical Impression: Altered mental status, unspecified Qualifiers: Altered mental status type: unspecified Qualified Code(s): R41.82 - Altered mental status, unspecified Constipation Qualifiers: Constipation type: unspecified constipation type Qualified Code(s): K59.00 - Constipation, unspecified Condition: Stable Critical Care Time: No Referrals: LANDRY LUCIA MD [Primary Care Provider] -
[2017-08-16] MEDS ORDERED: Sodium Chloride 0.9% 1000 ML 1,000 ML ONE (14:01)
[2017-08-16 14:04] LABS: INR 1.06 (0.8-3.0)
[2017-08-16 14:09] LABS: ALBUMIN 4.4 g/dL (3.5-5.0); ALKALINE PHOSPHATASE 86 U/L (38-126); AMYLASE 118 U/L (30-110); ANION GAP 17.4 MEQ/L (5-15); BLOOD UREA NITROGEN 22 mg/dL (9-20); CHLORIDE 106 mmol/L (98-107); CK-Creatinine Phosphokinase 58 U/L (55-170); Calcium 9.9 mg/dL (8.4-10.2); Carbon Dioxide 26 mmol/L (22-30); Creatinine 1 0.94 mg/dL (0.66-1.25); Glucose 127 mg/dL (74-106); LIPASE 129 U/L (23-300); Potassium 3.8 mmol/L (3.5-5.1); SGOT/AST 17 U/L (17-59); SGPT/ALT 24 U/L (0-50); SODIUM 145 mmol/L (137-145); Total Protein 7.7 g/dL (6.3-8.2)
[2017-08-16 14:15] LABS: ETHYL ALCOHOL < 10 mg/dL (0-10)
[2017-08-16 14:17] LABS: NT PRO BNP 62.2 pg/mL (0-900)
[2017-08-16 16:09] LABS: Appearance CLEAR (CLEAR); Bilirubin NEGATIVE (NEGATIVE); Blood 250 Ery/ul (0-5); Glucose NEGATIVE (NEGATIVE); Ketones NEGATIVE (NEGATIVE); Leukocyte Esterase NEGATIVE (NEGATIVE); Nitrite NEGATIVE (NEGATIVE); Protein,Urine Dip 30 (Negative); Specific Gravity 1.025 (1.005-1.025); Urobilinogen NORMAL mg/dL (0-1)
[2017-08-16 16:12] LABS: Bacteria RARE /HPF (NEGATIVE); Epithelial Cells RARE /HPF (FEW); Mucus SLIGHT /HPF (NEGATIVE); WBC 0-2 /HPF (0-5)
[2017-08-16 16:19] LABS: Amphetamine,Urine NEGATIVE (NEGATIVE); Barbiturate,Urine NEGATIVE (NEGATIVE); Benzodiazepine,Urine NEGATIVE (NEGATIVE); Cocaine,Urine NEGATIVE (NEGATIVE); Methadone,Urine NEGATIVE (NEGATIVE); Opiate,Urine NEGATIVE (NEGATIVE); PCP,Urine NEGATIVE (NEGATIVE); THC,Urine NEGATIVE (NEGATIVE)
[2017-08-16] MEDS ORDERED: Ecotrin 325 MG PO ONE (16:45)
[2017-08-16] MEDS ORDERED: DUONEB 0.5-3 MG/3 ml Neb IH PRN (16:48)
--- NOTE | 2017-08-16 20:29 | XRAY ---
Indication: Acute mental status change. Confusion. Comparison: February 12, 2007. Again images through the base of the brain slightly degraded by motion artifact. Stable age-appropriate global atrophy, moderate periventricular degenerative microvascular ischemia bilaterally, remote right cerebellar infarct, remote left mid coronary radiata infarct, remote left pontine lacunar infarct, and remote right internal capsule lacunar infarct. No acute intracranial hemorrhage, abnormal extra-axial fluid collection, or mass effect. Fourth ventricle is midline. Bony calvarium intact. Visualized paranasal sinuses and mastoid air cells are clear. Impression: 1. Again motion artifact. 2. Stable atrophy, degenerative micro-ischemia, and multifocal remote infarcts as detailed. 2. No gross new or acute intracranial abnormalities. Comment: Preliminary interpretation was made by [facility]. No discrepancy. CTDI 67.41
--- NOTE | 2017-08-16 20:33 | XRAY ---
Indication: Abdomen pain and weakness. Multiple contiguous axial images obtained through the abdomen and pelvis without contrast as ordered. Comparison: None Lung bases demonstrates minimal bibasilar fibrosis/scarring. No infiltrate or effusion. Heart is not enlarged. Moderate size hiatal hernia. Noncontrasted stomach and bowel loops appear nonobstructed with large rectal impaction. Appendix not seen. No free fluid/air. 2.8 cm left lobe hepatic cyst. Also a few bilateral renal cysts, largest right midpole measuring 2.2 cm. Remaining liver, gallbladder, pancreas, spleen, adrenal glands, kidneys, ureters, and bladder appear unremarkable for noncontrast exam. Mild aortoiliac calcifications without AAA. Osseous structures intact with mild/moderate degenerative changes throughout the spine, greatest in the inferior lumbar spine. Moderate sized fatty left inguinal hernia. Impression: 1. Fecal rectal impaction without obstruction. 2. Incidental hiatal hernia, hepatic/renal cysts, and fatty left inguinal hernia. Comment: Preliminary interpretation was made by [facility]. No discrepancy. CTDI 22.28
--- NOTE | 2017-08-16 20:35 | XRAY ---
Indication: Acute mental status change. Confusion. Comparison: None Portable chest demonstrates small right mid lung ovoid opacity better evaluated with CT. Remaining heart and lungs unremarkable. Bony thorax intact with moderate degenerative changes.
[2017-08-16] MEDS ORDERED: LIPITOR 40MG PO SCH (22:00)
[2017-08-16] MEDS ORDERED: Senokot-S Tablet PO ONE (22:00)
[2017-08-16] MEDS ORDERED: ZOCOR 20MG ONE (22:07)
[2017-08-16] MEDS: NORVASC 5 MG PO SCH (22:09)
[2017-08-17] MEDS: Sodium Chloride 0.9% 1000 ML 1,000 ML IV SCH ×3 (00:30→21:29)
[2017-08-17 02:40] LABS: BASOPHIL % 0.3 % (0.0-0.4); Basophil (Absolute #) 0.03 (0-0.4); Eosinophil % 2.9 % (0.00-5.0); Granulocyte Absolute (ANC) 6.97 (1.4-6.9); Granulocytes % 66.9 % (36.0-66.0); Hematocrit 42.9 % (42-50); Hemoglobin 14.3 gm/dl (12.5-18.0); Lymphocytes % 18.2 % (24.0-44.0); Mean Cell Volume 91.3 fl (78-100); Mean Corpuscular Hemoglobin 30.4 pg (26-32); Mean Corpuscular Hgb Concent. 33.3 g/dl (32-36); Mean Platelet Volume 10.3 fl (6-9.5); Monocyte (Absolute #) 1.22 (0.0-1.3); Monocytes % 11.7 % (0.0-12.0); Platelet Count 235 K/mm3 (150-450); Red Cell Distribution Width 13.8 % (11.5-14.0); White Blood Count 10.4 K/mm3 (4.0-10.5)
[2017-08-17 02:41] LABS: ANION GAP 14.9 MEQ/L (5-15); BLOOD UREA NITROGEN 21 mg/dL (9-20); CHLORIDE 105 mmol/L (98-107); Calcium 9.6 mg/dL (8.4-10.2); Carbon Dioxide 24 mmol/L (22-30); Creatinine 1 1.02 mg/dL (0.66-1.25); Glucose 109 mg/dL (74-106); Potassium 3.6 mmol/L (3.5-5.1); SODIUM 141 mmol/L (137-145)
[2017-08-17] MEDS ORDERED: BABY ASPIRIN 81 MG CHEW PO SCH (10:00)
[2017-08-17] MEDS: PLAVIX 75 MG Tablet PO SCH (10:16)
[2017-08-17] MEDS: ECOTRIN 81 MG PO SCH (10:16)
[2017-08-17] MEDS: ENOXAPARIN SODIUM SQ SCH (10:16)
[2017-08-17] MEDS: Pepcid 20 MG PO SCH (10:16)
[2017-08-17] MEDS: Flomax 0.4 MG PO SCH (10:16)
[2017-08-17] MEDS ORDERED: CITROMA 296 ML PO ONE (11:06)
[2017-08-17] MEDS ORDERED: Dulcolax 10 MG SUPP PR ONE (11:07)
--- NOTE | 2017-08-17 11:07 | PCM.HP ---
History of Present Illness - Chief Complaint Chief Complaint: AMS Date: 08/17/17 History of Present Illness: is a 67 year old male. who has had previous strokes treated in rehab and was following with neurology with residual deficit of impaired gait and weakness in bilaterall lower extremities. He has been being assisted up to his wheelchair by his but has had progressively less and less strength. When he finished therapy he was transferring on his own per his son but is now having more difficulty even assiting with the transfer. Today it required 2 aides to assist him out of bed to the chair. He has noticed his abdomen has become more distended and causing him more difficulty as well. His family brought him to the ED as he was too weak now for them to be able to assit him. He is not currenlty having any abdominal pain. He had rectal exam in ED with minimal stool out and soft stool per ED physician. He had senna s last night without results. - Review of Systems Constitutional: No Fever, No Chills Eyes: No Symptoms Ears, Nose, & Throat: No Symptoms Respiratory: No Cough, No Short Of Breath Cardiac: No Chest Pain, No Edema, No Syncope Abdominal/Gastrointestinal: No Abdominal Pain, No Nausea, No Vomiting, No Diarrhea Genitourinary Symptoms: No Dysuria Musculoskeletal: No Back Pain, No Neck Pain Skin: No Rash Neurological: Focal Weakness, Gait Changes, Parasthesia, No Dizziness, No Sensory Changes Psychological: No Symptoms Endocrine: No Symptoms Hematologic/Lymphatic: No Symptoms Immunological/Allergic: No Symptoms Medications & Allergies Home Medications: Home Medication List Amlodipine Besylate [Amlodipine Besylate] 5 mg PO HS 08/16/17 [History Confirmed 08/16/17] Aspirin 81 gm Chew [Baby Aspirin 81 mg Chew] 81 mg PO DAILY 08/16/17 [ History Confirmed 08/16/17] Atorvastatin Calcium 80 mg PO HS 08/16/17 [History Confirmed 08/16/17] Clopidogrel Bisulfate [Clopidogrel] 75 mg PO DAILY 08/16/17 [History Confirmed 08/16/17] Famotidine [Famotidine] 20 mg PO DAILY 08/16/17 [History Confirmed 08/16/17] Tamsulosin HCl [Tamsulosin HCl] 0.4 mg PO DAILY 08/16/17 [History Confirmed ] Allergies/Adverse Reactions: Allergies Allergy/AdvReac Type Severity Reaction Status Date / Time No Known Drug Allergies Allergy Verified 08/16/17 13:25 - Past Medical History Past Medical History: Yes Neurological History: Stroke ENT History: No Pertinent History Cardiac History: Hypertension Respiratory History: No Pertinent History Endocrine Medical History: No Pertinent History Musculoskelatal History: No Pertinent History GI Medical History: GERD History: No Pertinent History Pyscho-Social History: No Pertinent History Male Reproductive Disorders: Prostate Problems - Past Surgical History Past Surgical History: Yes Neuro Surgical History: No Pertinent History Cardiac History: No Pertinent History Respiratory Surgery: No Pertinent History GI Surgical History: Appendectomy Genitourinary Surgical Hx: No Pertinent History Musculskeletal Surgical Hx: No Pertinent History Male Surgical History: No Pertinent History - Social History Smoking Status: Former smoker Exposure to second hand smoke: No Alcohol: None Drug Use: none - Physical Exam Vital Signs: Vital Signs - 24 hr Temp Pulse Resp BP Pulse Ox 08/17/17 07:12 98.0 F 73 18 137/96 94 L 08/17/17 03:42 97.9 F 66 18 128/87 94 L 08/17/17 00:00 98.0 F 88 17 121/73 93 L 08/16/17 20:00 98.0 F 104 H 18 112/71 93 L 08/16/17 18:00 81 16 94 L 08/16/17 17:34 98.9 F 75 18 137/89 94 L 08/16/17 17:25 98.9 F 75 18 137/89 94 L 08/16/17 16:47 95 08/16/17 16:00 78 16 116/71 97 08/16/17 14:20 71 16 127/72 97 08/16/17 13:15 98.2 F 70 20 129/77 95 General Appearance: no apparent distress, alert Neurologic Exam: alert, oriented x 3, cooperative, normal mood/affect, sensation nml, motor deficits (4-/5 weakness bilateral lower legs no focal findings) Eye Exam: PERRL/EOMI, eyes nml inspection, No scleral icterus Ears, Nose, Throat Exam: normal ENT inspection, TMs normal, pharynx normal, moist mucous membranes Neck Exam: normal inspection, non-tender, supple, full range of motion Respiratory Exam: normal breath sounds, lungs clear, No respiratory distress Cardiovascular Exam: regular rate/rhythm, normal heart sounds, normal peripheral pulses Gastrointestinal/Abdomen Exam: soft, normal bowel sounds, distention, No tenderness, No mass Back Exam: normal inspection, normal range of motion, No CVA tenderness, No vertebral tenderness Extremity Exam: normal inspection, normal range of motion, pelvis stable Skin Exam: normal color, warm, dry, No rash Lymphatic Exam: No adenopathy Results - Labs Lab/Micro Results: Lab Results-Last 24 Hours 08/16/17 08/16/17 08/17/17 Range/Units 19:55 22:49 02:16 WBC (4.0-10.5) K/mm3 RBC (4.1-5.6) M/mm3 Hgb (12.5-18.0) gm/dl Hct (42-50) % MCV (78-100) fl MCH (26-32) pg MCHC (32-36) g/dl RDW (11.5-14.0) % Plt Count (150-450) K/mm3 MPV (6-9.5) fl Gran % (36.0-66.0) % Eos # (Auto) (0-0.5) Absolute Lymphs (auto) (1.0-4.6) Absolute Monos (auto) (0.0-1.3) Lymphocytes % (24.0-44.0) % Monocytes % (0.0-12.0) % Eosinophils % (0.00-5.0) % Basophils % (0.0-0.4) % Absolute Granulocytes (1.4-6.9) Basophils # (0-0.4) Sodium (137-145) mmol/L Potassium (3.5-5.1) mmol/L Chloride (98-107) mmol/L Carbon Dioxide (22-30) mmol/L Anion Gap (5-15) MEQ/L BUN (9-20) mg/dL Creatinine (0.66-1.25) mg/dL Estimated GFR ML/MIN Glucose (74-106) mg/dL Calcium (8.4-10.2) mg/dL Troponin I < 0.012 < 0.012 < 0.012 (0.000-0.034) ng/mL 08/17/17 08/17/17 Range/Units 02:16 02:16 WBC 10.4 (4.0-10.5) K/mm3 RBC 4.70 (4.1-5.6) M/mm3 Hgb 14.3 (12.5-18.0) gm/dl Hct 42.9 (42-50) % MCV 91.3 (78-100) fl MCH 30.4 (26-32) pg MCHC 33.3 (32-36) g/dl RDW 13.8 (11.5-14.0) % Plt Count 235 (150-450) K/mm3 MPV 10.3 H (6-9.5) fl Gran % 66.9 H (36.0-66.0) % Eos # (Auto) 0.30 (0-0.5) Absolute Lymphs (auto) 1.90 (1.0-4.6) Absolute Monos (auto) 1.22 (0.0-1.3) Lymphocytes % 18.2 L (24.0-44.0) % Monocytes % 11.7 (0.0-12.0) % Eosinophils % 2.9 (0.00-5.0) % Basophils % 0.3 (0.0-0.4) % Absolute Granulocytes 6.97 H (1.4-6.9) Basophils # 0.03 (0-0.4) Sodium 141 (137-145) mmol/L Potassium 3.6 (3.5-5.1) mmol/L Chloride 105 (98-107) mmol/L Carbon Dioxide 24 (22-30) mmol/L Anion Gap 14.9 (5-15) MEQ/L BUN 21 H (9-20) mg/dL Creatinine 1.02 (0.66-1.25) mg/dL Estimated GFR > 60.0 ML/MIN Glucose 109 H (74-106) mg/dL Calcium 9.6 (8.4-10.2) mg/dL Troponin I (0.000-0.034) ng/mL - Radiology Impressions Radiology Exams & Impressions: Radiology Procedures Category Date Time Status CHEST WITHOUT CONTRAST [CT] Routine Exams 08/17/17 10:53 Ordered Assessment/Plan (1) Constipation Current Visit: Yes Status: Acute Qualifiers: Constipation type: unspecified constipation type Qualified Code(s): K59.00 - Constipation, unspecified Assessment & Plan: he was admitted from the ER. He was to be placed in observation and the order got placed for inpatient instead he should be in observation. darrion s last night will give magnesium citrate today and suppository and continue to improve bowel regimen digital exam per ED physician did not find hard impaction Code(s): K59.00 - CONSTIPATION, UNSPECIFIED (2) Dehydration Current Visit: Yes Status: Acute Assessment & Plan: mild use iv fluids Code(s): E86.0 - DEHYDRATION (3) Altered mental status, unspecified Current Visit: Yes Status: Acute Qualifiers: Altered mental status type: unspecified Qualified Code(s): R41.82 - Altered mental status, unspecified Assessment & Plan: improving today son at bedside supplements the history and he seems back to his baseline Code(s): R41.82 - ALTERED MENTAL STATUS, UNSPECIFIED (4) Weakness Current Visit: Yes Status: Acute Assessment & Plan: inability to transfer without 2 person assist will continue to monitor and discusse with family appropriate discharge disposition Code(s): R53.1 - WEAKNESS (5) Stroke Current Visit: Yes Status: Chronic Code(s): I63.9 - CEREBRAL INFARCTION, UNSPECIFIED
[2017-08-17] MEDS ORDERED: Dulcolax 10 MG SUPP ONE (14:07)
[2017-08-17] MEDS ORDERED: CITROMA 296 ML ONE (14:08)
--- NOTE | 2017-08-17 18:24 | XRAY ---
Indication: Right mid lung ovoid density on recent chest radiograph. Multiple contiguous axial images obtained through the chest without contrast. Comparison: None In the superior segment of the right lower lobe, there is a subpleural noncalcified nodule posterolaterally measuring 1.3 x 0.9 x 1.4 cm felt to correspond to the chest radiograph finding. Margins appear irregular/spiculated with mild pleural thickening. Minimal bibasilar fibrosis/scarring. No other pulmonary mass, infiltrate, or effusion. Heart is not enlarged. Aorta is mildly after scribed without aneurysmal dilatation. No pathologic mediastinal lymphadenopathy. Small hiatal hernia. Bony thorax intact with mild degenerative changes throughout the spine. CT abdomen reported one day earlier. Impression: 1. Right lower lobe irregular/spiculated subpleural noncalcified nodule corresponding to the recent chest radiograph finding. Finding may be too small for PET/CT. Recommend follow-up per Fleischner guidelines. 2. No acute cardiopulmonary abnormalities on this noncontrast exam. 3. Small hiatal hernia. Comment: Preliminary interpretation was made by C. No discrepancy. CTDI 15.25
[2017-08-17] MEDS ORDERED: ZOCOR 20MG PO SCH (22:00)
[2017-08-17] MEDS: NORVASC 5 MG PO SCH (22:51)
--- NOTE | 2017-08-18 09:04 | PCM.DS ---
Discharge Summary Date of Admission: 08/16/17 17:15 Admitting Physician: RAVINDER WADE Primary Care Provider: LANDRY LUCIA Allergies Allergies No Known Drug Allergies Allergy (Verified 08/16/17 13:25) Hospital Summary - Hospital Course Hospital Course: patient admitted with abdominal pain and constipation, had some dehydration. has had a bowel movement since admission, he is tolerating a regular diet and feels great today. - Vitals & Intake/Output Vital Signs: Vital Signs Temperature 98.3 F 08/18/17 07:31 Pulse Rate 66 08/18/17 07:31 Respiratory Rate 18 08/18/17 07:31 Blood Pressure 131/78 08/18/17 07:31 O2 Sat by Pulse Oximetry 96 08/18/17 07:31 Intake & Output: Intake & Output 08/15/17 08/16/17 08/17/17 08/18/17 11:59 11:59 11:59 11:59 Intake Total 2496 3788 Output Total 500 2750 Balance 1995 1037 Weight 68.8 kg - Lab Result Diagrams: 08/17/17 02:16 08/17/17 02:16 - Radiology Exams Ordered Rad Exams-Entire Visit: Radiology Procedures Category Date Time Status CHEST WITHOUT CONTRAST [CT] Routine Exams 08/17/17 11:38 Completed Discharge Exam General Appearance: no apparent distress, alert Neurologic Exam: motor weakness Skin Exam: normal color, warm, dry Respiratory Exam: normal breath sounds, lungs clear, No respiratory distress Cardiovascular Exam: regular rate/rhythm, normal heart sounds Gastrointestinal/Abdomen Exam: soft, No tenderness, No mass Final Diagnosis/Problem List - Final Discharge Diagnosis/Problem (1) Constipation Current Visit: Yes Status: Acute Assessment & Plan: resolved (2) Dehydration Current Visit: Yes Status: Acute Assessment & Plan: resolved, patient declines need for any assistance in the home at this time. his mobility is limited from a prior CVA - Discharge Disposition: Home, Self-Care Condition: Stable Prescriptions: Continue Famotidine 20 mg PO DAILY Clopidogrel Bisulfate [Clopidogrel] 75 mg PO DAILY Atorvastatin Calcium 80 mg PO HS Amlodipine Besylate 5 mg PO HS Tamsulosin HCl 0.4 mg PO DAILY Aspirin 81 gm Chew [Baby Aspirin 81 mg Chew] 81 mg PO DAILY Follow up with: LANDRY LUCIA MD [Primary Care Provider] - 1 Week
[2017-08-18] MEDS: Pepcid 20 MG PO SCH (09:20)
[2017-08-18] MEDS: ENOXAPARIN SODIUM SQ SCH (09:20)
[2017-08-18] MEDS: PLAVIX 75 MG Tablet PO SCH (09:20)
[2017-08-18] MEDS: ECOTRIN 81 MG PO SCH (09:20)
[2017-08-18] MEDS: Flomax 0.4 MG PO SCH (09:20)
[2017-08-18 11:48] VITALS: BP 121/70; PULSE 72; O2SAT 94
== END 2017-08-18 14:15 | disposition home health service (06) ==
LOC: ED 13:14 → MED SURG 17:15 → UNDOADMOB 17:15 → INTOOBSV 17:15 → UNDOADMOB 08-17 11:07 → MED SURG 08-17 11:07
PROVIDERS: ADMIT Family Medicine; ATTEND Family Medicine
DX: K59.00 Constipation, unspecified (principal); E86.0 Dehydration; I10 Essential (primary) hypertension; Z86.73 Personal history of transient ischemic attack (TIA), and cerebral infarction without residual deficits; Z79.899 Other long term (current) drug therapy
CPT/HCPCS: 36000; 36415; 51702; 70450; 71045; 71250; 74176; 80048; 80053; 80307; 81000; 82150; 82272; 82550; 83605; 83690; 83735; 83880; 84484; 85025; 85610; 87086; 93005; 96360; 99285; G0378; J1650; A9270-GY; G0480

== ENCOUNTER 2017-12-24 14:13 | Inpatient (IN) | payer MEDICARE, OTHER ==
--- NOTE | 2017-12-24 14:39 | ERPHSYRPT ---
- History of Present Illness Time Seen by Provider: 12/24/17 14:18 Source: patient, family Exam Limitations: no limitations Physician History: patient arrived from [facility] in a wheelchair by family with 5 day hx of increased weakness; right side > left. no chest pain or syncope; no travel or exposures; no Headaches or visual changes; no falls or trauma; no fever or chills; patient had CVA last January affecting his right side; went to rehab and home and was able to ambulate with a walker until a week ago; incontinent of urine and stool chronic; had a UTI and Pneumonia before; dry cough this week; no sob; good appetite; symptoms similar to when had a stroke last year Timing/Duration: week(s) (one), gradual onset, worse Severity: severe Character of Deficits: new weakness (right side), impaired speech, other ( difficulty coming up with words) Deficits: cannot stand, cannot walk, weak Baseline/Normal Cognition: alert oriented x 3 Current Cognition: alert oriented x 3 Baseline Gait: unable to walk Associated Symptoms: weakness (general R>L;), slurred speech, other (expressive aphasia) Allergies/Adverse Reactions: No Known Drug Allergies Allergy (Verified 12/24/17 14:44) Home Medications: Amlodipine Besylate 5 mg PO HS 08/16/17 [History] Aspirin 81 gm Chew [Baby Aspirin 81 mg Chew] 81 mg PO DAILY 08/16/17 [ History] Atorvastatin Calcium 80 mg PO HS 08/16/17 [History] Clopidogrel Bisulfate [Clopidogrel] 75 mg PO DAILY 08/16/17 [History] Famotidine 20 mg PO DAILY 08/16/17 [History] Tamsulosin HCl 0.4 mg PO DAILY 08/16/17 [History] Hx Tetanus, Diphtheria Vaccination/Date Given: Yes Hx Influenza Vaccination/Date Given: No Hx Pneumococcal Vaccination/Date Given: No - Review of Systems Constitutional: Weakness Eyes: No Symptoms Ears, Nose, & Throat: No Symptoms Respiratory: Cough (dry mild), No Dyspnea, No Dyspnea on Exertion (HOWARD), No Wheezing Cardiac: No Chest Pain, No Palpitations, No Syncope Abdominal/Gastrointestinal: No Abdominal Pain, No Nausea, No Vomiting, No Diarrhea Genitourinary Symptoms: Incontinence, No Dysuria, No Frequency, No Hematuria, No Flank Pain Musculoskeletal: No Back Pain, No Neck Pain, No Fall, No Injury Skin: No Symptoms Neurological: Focal Weakness (and generalized R>L), Other (cant stand or walk) Psychological: No Symptoms Endocrine: No Symptoms Hematologic/Lymphatic: No Symptoms Immunological/Allergic: No Symptoms - Past Medical History Pertinent Past Medical History: Yes Neurological History: Stroke ENT History: No Pertinent History Cardiac History: Hypertension Respiratory History: No Pertinent History Endocrine Medical History: No Pertinent History Musculoskeletal History: No Pertinent History GI Medical History: GERD History: No Pertinent History Psycho-Social History: No Pertinent History Male Reproductive Disorders: Prostate Problems - Past Surgical History Past Surgical History: Yes Neuro Surgical History: No Pertinent History Cardiac: No Pertinent History Respiratory: No Pertinent History Gastrointestinal: Appendectomy Genitourinary: No Pertinent History Musculoskeletal: No Pertinent History Male Surgical History: No Pertinent History - Social History Smoking Status: Former smoker Exposure to second hand smoke: No Alcohol Use: None Drug Use: none Patient Lives Alone: No Significant Family History: no pertinent family hx - Female History Hx Now: No - Nursing Vital Signs Nursing Vital Signs: Initial Vital Signs Temperature 98.0 F 12/24/17 14:33 Pulse Rate 85 12/24/17 14:33 Respiratory Rate 18 12/24/17 14:33 Blood Pressure 143/94 12/24/17 14:33 O2 Sat by Pulse Oximetry 98 12/24/17 14:33 Pain Scale Pain Intensity 0 - [place] Coma Scale Best Eye Response ([place]): (4) open spontaneously Best Verbal Response ([place]): (5) oriented Best Motor Response ([place]): (6) obeys commands [place] Total: 15 - Physical Exam General Appearance: moderate distress, alert, other (generalized wekaness R>L) Eye Exam: bilateral eye: normal inspection, PERRL, EOMI, other (vision grossly wnl) Ears, Nose, Throat Exam: normal ENT inspection, TMs normal, pharynx normal, moist mucous membranes Neck Exam: normal inspection, non-tender, supple, full range of motion, No carotid bruit, No JVD Respiratory: normal breath sounds, lungs clear, airway intact, No chest tenderness, No respiratory distress, No crackles/rales, No rhonchi, No wheezing Cardiovascular: regular rate/rhythm, normal heart sounds, normal peripheral pulses, capillary refill 2-3 sec, No murmur Gastrointestinal: soft, normal bowel sounds, No tenderness, No guarding, No organomegaly Rectal Exam: deferred Back Exam: normal inspection, normal range of motion, No CVA tenderness, No rash Extremity Exam: normal inspection, pelvis stable, pedal edema (trace), No normal range of motion, No calf tenderness, No dmitry's sign, No joint swelling Peripheral Pulses: carotid (R): 4+, carotid (L): 4+, femoral (R): 4+, femoral (L ): 4+, dorsalis-pedis (R): 3+, dorsalis-pedis (L): 3+ Mental Status: alert, oriented x 3, 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 Exam: normal hearing, PERRL, abnormal speech (slow thick), tongue midline, No normal speech (slow; slightly thick), No facial asymmetry, No facial droop Coordination/Gait: normal finger to nose (left, poor on R,) Motor/Sensory: pronator drift (R), weak motor strength RUE, weak motor strength RLE Skin Exam: normal color, warm, dry, No rash, No petechiae, No cyanosis SpO2 Interpretation: normal SpO2: 98 Oxygen Delivery: Room Air - Course Nursing assessment & vital signs reviewed: Yes EKG Interpreted by Me: RATE (77), Sinus Rhythm, NORMAL AXIS, NORMAL INTERVALS, NORMAL QRS, Non-specific ST Changes, Other (occassional PVCs no significant change from 08/16/17 ohter then inverted P waves inf leads) Rhythm Strip: Rate (76), Normal Sinus Rhythm - Radiology Exams Chest X-ray Interpretation: Reviewed by me, Teleradiologist Report, No Pneumonia, No Pneumothorax, Nml Heart Size - CT Exams Head CT Interpretation: Tele-radiologist Report, No/Intracranial Hemorrhag, Other ( stable atrophy; degnerative micro ischemia and multifocla remote infarcts; no new or atute abnomralities noted) Ordered Tests: Active Orders 24 hr Category Date Time Status Bedrest ROUTINE Activity 12/24/17 15:31 Ordered Accucheck ACHS Care 12/24/17 15:29 Ordered Admit as Inpatient ROUTINE Care 12/24/17 15:29 Ordered Field C[employer] Farmworker STAT Care 12/24/17 14:30 Active Code Status Order ROUTINE Care 12/24/17 15:29 Ordered EKG-ER Only STAT Care 12/24/17 14:29 Active Fall Protocol ROUTINE Care 12/24/17 15:31 Ordered IV Care Q6H Care 12/24/17 15:29 Ordered IV Insertion STAT Care 12/24/17 14:49 Active Neuro Checks Q4H Care 12/24/17 15:29 Ordered Pulse Oximetry (ED) STAT Care 12/24/17 14:29 Active Re-Check Vital Signs STAT Care 12/24/17 14:29 Active Jesu Le, Apply ROUTINE Care 12/24/17 15:29 Ordered Telemetry ROUTINE Care 12/24/17 15:29 Ordered Weight,Daily 0600 Care 12/24/17 15:29 Ordered CHEST 1 VIEW (PORTABLE) Stat Exams 12/24/17 14:29 Completed HEAD WITHOUT CONTRAST [CT] Stat Exams 12/24/17 14:29 Completed BMP Stat Lab 12/24/17 14:30 Received CBC W DIFF Stat Lab 12/24/17 14:30 Received PTT Stat Lab 12/24/17 14:59 Received UA W/RFX UR CULTURE Stat Lab 12/24/17 15:07 Ordered Transfer Order Routine Transfer 12/24/17 Ordered Medication Summary Generic Name Dose Route Start Last Admin Trade Name Freq PRN Reason Stop Dose Admin Sodium Chloride 1,000 mls @ 75 mls/hr 12/24/17 15:30 Sodium Chloride 0.9% 1000 Ml IV 01/23/18 15:29 .[id number] TERESA Sodium Chloride 250 mls @ 250 mls/hr 12/24/17 15:27 Sodium Chloride 0.9% 500 Ml IV 12/24/17 16:26 .Q1H ONE Discontinued Medications Generic Name Dose Route Start Last Admin Trade Name Freq PRN Reason Stop Dose Admin Sodium Chloride Confirm 12/24/17 15:17 Sodium Chloride 0.9% 1000 Ml Administered 12/24/17 15:18 Dose 1,000 mls @ ud .ROUTE .STK-MED ONE Lab/Rad Data: Laboratory Result Diagrams 12/24/17 14:30 12/24/17 14:30 Laboratory Results 12/24/17 12/24/17 Range/Units 14:30 14:30 WBC 5.7 (4.0-10.5) K/mm3 RBC 5.40 (4.1-5.6) M/mm3 Hgb 16.3 (12.5-18.0) gm/dl Hct 50.1 H (42-50) % MCV 92.8 (78-100) fl MCH 30.2 (26-32) pg MCHC 32.5 (32-36) g/dl RDW 14.2 H (11.5-14.0) % Plt Count 232 (150-450) K/mm3 MPV 10.6 H (6-9.5) fl Gran % 54.7 (36.0-66.0) % Eos # (Auto) 0.23 (0-0.5) Absolute Lymphs (auto) 1.77 (1.0-4.6) Absolute Monos (auto) 0.58 (0.0-1.3) Lymphocytes % 30.9 (24.0-44.0) % Monocytes % 10.1 (0.0-12.0) % Eosinophils % 4.0 (0.00-5.0) % Basophils % 0.3 (0.0-0.4) % Absolute Granulocytes 3.13 (1.4-6.9) Basophils # 0.02 (0-0.4) Sodium 143 (137-145) mmol/L Potassium 3.8 (3.5-5.1) mmol/L Chloride 104 (98-107) mmol/L Carbon Dioxide 25 (22-30) mmol/L Anion Gap 17.7 H (5-15) MEQ/L BUN 18 (9-20) mg/dL Creatinine 1.09 (0.66-1.25) mg/dL Estimated GFR > 60.0 ML/MIN Glucose 167 H (74-106) mg/dL Calcium 10.3 H (8.4-10.2) mg/dL reviewed - Progress Progress: re-examined (no change) Progress Note: 12/24/17 14:45 family at bedside; patietn unable to stand or ambulate and staff had to move from wheelchair to bed; will get CT; CXR ; lab and urine and ekg; will monitor and recheck 12/24/17 14:[address]; results pending; no change in exam; will cath for UA; IV started; labs pending;EKG non-specific; inverted P wave from 08/16/17 and occassional PVC; no other changes; will monitor and recheck 12/24/17 15:02 CT and CXR back with out acute changes noted 12/24/17 15:16 labs ok wiht increase BS 167; Cath UA only 3 cc ; will culture; will consulted Dr Dai for disposition 12/24/17 15:23 Dr Dai consulted and will admit and evaluate new CVA 12/24/17 15:27 Family and patient infomred; bed called for; will monitor Discussed with .: Suhas (consulted and will admit) Will see patient in: hospital (full admit) Counseled pt/family regarding: lab results, diagnosis, need for follow-up, rad results - Departure Time of Disposition: 15:24 Departure Disposition: In-patient Admission Clinical Impression: CVA new acute defecits, Elevated glucose level, Urinary and fecal incontinence Condition: Serious Critical Care Time: No Referrals: LETY SALAZAR [Primary Care Provider] - LANDRY DAI MD [ACTIVE STAFF] -
[2017-12-24 14:55] LABS: BASOPHIL % 0.3 % (0.0-0.4); Basophil (Absolute #) 0.02 (0-0.4); Eosinophil (Absolute #) 0.23 (0-0.5); Granulocyte Absolute (ANC) 3.13 (1.4-6.9); Granulocytes % 54.7 % (36.0-66.0); Hematocrit 50.1 % (42-50); Hemoglobin 16.3 gm/dl (12.5-18.0); Lymphocyte (Absolute #) 1.77 (1.0-4.6); Lymphocytes % 30.9 % (24.0-44.0); Mean Cell Volume 92.8 fl (78-100); Mean Corpuscular Hemoglobin 30.2 pg (26-32); Mean Corpuscular Hgb Concent. 32.5 g/dl (32-36); Mean Platelet Volume 10.6 fl (6-9.5); Monocyte (Absolute #) 0.58 (0.0-1.3); Monocytes % 10.1 % (0.0-12.0); Platelet Count 232 K/mm3 (150-450); Red Cell Distribution Width 14.2 % (11.5-14.0); White Blood Count 5.7 K/mm3 (4.0-10.5)
--- NOTE | 2017-12-24 14:57 | XRAY ---
Indication: Lethargy and generalized weakness. Possible stroke. Multiple contiguous axial images obtained through the head without contrast. Comparison: August 16, 2017. Again a few images through the base the brain slightly degraded by motion artifact. Stable age-appropriate global atrophy, moderate periventricular degenerative micro-ischemia bilaterally, small remote right cerebellar infarct, smaller remote left mid yepez radiata infarct, tiny remote right internal capsule lacunar infarct, and tiny remote left pontine lacunar infarct. No acute intracranial hemorrhage, abnormal extra-axial fluid collection, or mass effect. Fourth ventricle is midline. Bony calvarium intact. Visualized paranasal sinuses and mastoid air cells are clear. Impression: 1. Stable atrophy, degenerative micro-ischemia, and multifocal remote infarcts as detailed. 2. No new or acute intracranial abnormalities. CT DI 67.41
--- NOTE | 2017-12-24 14:58 | XRAY ---
Indication: Possible stroke. Comparison: August 16, 2017. Portable chest again demonstrates chronic right costophrenic angle blunting. No focal infiltrate, consolidation, or large effusion. Heart is not enlarged for AP portable technique. Bony thorax intact again with mild osteopenia and degenerative changes. Impression: Nonacute chest with chronic features.
[2017-12-24 14:59] LABS: ANION GAP 17.7 MEQ/L (5-15); BLOOD UREA NITROGEN 18 mg/dL (9-20); CHLORIDE 104 mmol/L (98-107); Calcium 10.3 mg/dL (8.4-10.2); Carbon Dioxide 25 mmol/L (22-30); Creatinine 1 1.09 mg/dL (0.66-1.25); Glucose 167 mg/dL (74-106); Potassium 3.8 mmol/L (3.5-5.1); SODIUM 143 mmol/L (137-145)
[2017-12-24] MEDS ORDERED: Sodium Chloride 0.9% 1000 ML 1,000 ML ONE (15:17)
[2017-12-24] MEDS: Sodium Chloride 0.9% 1000 ML 1,000 ML IV SCH (16:04)
--- NOTE | 2017-12-24 17:14 | PCM.HP ---
History of Present Illness - Chief Complaint Chief Complaint: cva History of Present Illness: is a 67 year old male with a history of previous cva on aspirin and plavix. he presented to ER today with inability to bear weight or ambulate, he had previously been able to ambulate with walker and assistance. reports he has been choking on water the last few days as well. he denies pain, seems diffusely weak per patient. - Review of Systems Constitutional: No Fever, No Chills Ears, Nose, & Throat: No Symptoms Respiratory: No Cough, No Short Of Breath Cardiac: No Chest Pain, No Edema, No Syncope Abdominal/Gastrointestinal: No Abdominal Pain, No Nausea, No Vomiting, No Diarrhea Genitourinary Symptoms: No Dysuria Neurological: Focal Weakness, Speech Changes, No Headache Psychological: No Symptoms All Other Systems: Reviewed and Negative Medications & Allergies Home Medications: Home Medication List Amlodipine Besylate 5 mg PO HS 08/16/17 [History Confirmed 12/24/17] Aspirin 81 gm Chew [Baby Aspirin 81 mg Chew] 81 mg PO DAILY 08/16/17 [ History Confirmed 12/24/17] Atorvastatin Calcium 80 mg PO HS 08/16/17 [History Confirmed 12/24/17] Clopidogrel Bisulfate [Clopidogrel] 75 mg PO DAILY 08/16/17 [History Confirmed 12/24/17] Famotidine 20 mg PO DAILY 08/16/17 [History Confirmed 12/24/17] Tamsulosin HCl 0.4 mg PO DAILY 08/16/17 [History Confirmed 12/24/17] Allergies/Adverse Reactions: Allergies Allergy/AdvReac Type Severity Reaction Status Date / Time No Known Drug Allergies Allergy Verified 12/24/17 14:44 - Past Medical History Past Medical History: Yes Neurological History: Stroke ENT History: No Pertinent History Cardiac History: Hypertension Respiratory History: No Pertinent History Endocrine Medical History: No Pertinent History Musculoskelatal History: No Pertinent History GI Medical History: GERD History: No Pertinent History Pyscho-Social History: No Pertinent History Male Reproductive Disorders: Prostate Problems - Past Surgical History Past Surgical History: Yes Neuro Surgical History: No Pertinent History Cardiac History: No Pertinent History Respiratory Surgery: No Pertinent History GI Surgical History: Appendectomy Genitourinary Surgical Hx: No Pertinent History Musculskeletal Surgical Hx: No Pertinent History Male Surgical History: No Pertinent History - Social History Smoking Status: Former smoker How long have you smoked: 30 Exposure to second hand smoke: No Alcohol: None Drug Use: none Significant Family History: no pertinent family hx - Physical Exam Vital Signs: Vital Signs - 24 hr Temp Pulse Resp BP Pulse Ox 12/24/17 16:26 98.5 F 61 18 136/70 95 12/24/17 16:25 98.0 F 75 117/81 98 12/24/17 15:32 98 12/24/17 15:08 75 18 117/81 97 12/24/17 15:03 70 18 117/81 97 12/24/17 14:43 98 12/24/17 14:33 98.0 F 85 18 143/94 98 General Appearance: no apparent distress Neurologic Exam: alert, oriented x 3, cooperative, motor deficits (right pronator drift, right lower extremity strength 2/5), No chlorine operator II-XII nml as tested (some difficulty finding words), No facial droop, No slurred speech Eye Exam: PERRL/EOMI, eyes nml inspection Ears, Nose, Throat Exam: normal ENT inspection, TMs normal, pharynx normal, moist mucous membranes Neck Exam: normal inspection, non-tender, supple, full range of motion Respiratory Exam: normal breath sounds, lungs clear, No respiratory distress Cardiovascular Exam: regular rate/rhythm, normal heart sounds, normal peripheral pulses Gastrointestinal/Abdomen Exam: soft, normal bowel sounds, No tenderness, No mass Extremity Exam: normal inspection, normal range of motion, pelvis stable Skin Exam: normal color, warm, dry, No rash Results - Labs Lab/Micro Results: Lab Results-Last 24 Hours 12/24/17 12/24/17 12/24/17 Range/Units 14:30 14:30 14:59 WBC 5.7 (4.0-10.5) K/mm3 RBC 5.40 (4.1-5.6) M/mm3 Hgb 16.3 (12.5-18.0) gm/dl Hct 50.1 H (42-50) % MCV 92.8 (78-100) fl MCH 30.2 (26-32) pg MCHC 32.5 (32-36) g/dl RDW 14.2 H (11.5-14.0) % Plt Count 232 (150-450) K/mm3 MPV 10.6 H (6-9.5) fl Gran % 54.7 (36.0-66.0) % Eos # (Auto) 0.23 (0-0.5) Absolute Lymphs (auto) 1.77 (1.0-4.6) Absolute Monos (auto) 0.58 (0.0-1.3) Lymphocytes % 30.9 (24.0-44.0) % Monocytes % 10.1 (0.0-12.0) % Eosinophils % 4.0 (0.00-5.0) % Basophils % 0.3 (0.0-0.4) % Absolute Granulocytes 3.13 (1.4-6.9) Basophils # 0.02 (0-0.4) APTT 28.9 (24.1-36.1) SECONDS Sodium 143 (137-145) mmol/L Potassium 3.8 (3.5-5.1) mmol/L Chloride 104 (98-107) mmol/L Carbon Dioxide 25 (22-30) mmol/L Anion Gap 17.7 H (5-15) MEQ/L BUN 18 (9-20) mg/dL Creatinine 1.09 (0.66-1.25) mg/dL Estimated GFR > 60.0 ML/MIN Glucose 167 H (74-106) mg/dL Calcium 10.3 H (8.4-10.2) mg/dL - Radiology Impressions Radiology Exams & Impressions: Radiology Procedures Category Date Time Status CHEST 1 VIEW (PORTABLE) Stat Exams 12/24/17 14:29 Completed ECHO W/2D AND DOPPLER [US] Routine Exams 12/24/17 Ordered HEAD WITHOUT CONTRAST [CT] Stat Exams 12/24/17 14:29 Completed MRA NECK WITHOUT CONTRAST [MRI] Routine Exams 12/24/17 17:04 Ordered MRI BRAIN W/O CONTRAST [MRI] Routine Exams 12/24/17 17:04 Ordered Assessment/Plan (1) CVA (cerebrovascular accident) Current Visit: Yes Status: Acute Assessment & Plan: new symptoms present, much worse deficits now present on exam. continue asa and plavix, get MRI jeremiah, echo and MRA neck. ST/OT/PT Code(s): I63.9 - CEREBRAL INFARCTION, UNSPECIFIED (2) Dysphagia as late effect of cerebrovascular accident (CVA) Current Visit: Yes Status: Acute Assessment & Plan: speech therapy to consult Code(s): I69.391 - DYSPHAGIA FOLLOWING CEREBRAL INFARCTION (3) Weakness Current Visit: No Status: Acute Assessment & Plan: functional status with sharp decline, will likely need ecf placement after hospital stay Code(s): R53.1 - WEAKNESS (4) Hemiparesis Current Visit: Yes Status: Acute Code(s): G81.90 - HEMIPLEGIA, UNSPECIFIED AFFECTING UNSPECIFIED SIDE (5) Hypertension Current Visit: Yes Status: Acute Code(s): I10 - ESSENTIAL (PRIMARY) HYPERTENSION
[2017-12-24] MEDS ORDERED: LIPITOR 40MG PO SCH (22:00)
[2017-12-24] MEDS: ZOCOR 20MG PO SCH (22:11)
[2017-12-24] MEDS: NORVASC 5 MG PO SCH (22:11)
[2017-12-25] MEDS: Sodium Chloride 0.9% 1000 ML 1,000 ML IV SCH ×2 (01:52→18:24)
[2017-12-25 07:18] LABS: BASOPHIL % 0.4 % (0.0-0.4); Basophil (Absolute #) 0.03 (0-0.4); Eosinophil % 4.1 % (0.00-5.0); Eosinophil (Absolute #) 0.29 (0-0.5); Granulocyte Absolute (ANC) 3.87 (1.4-6.9); Granulocytes % 54.2 % (36.0-66.0); Hemoglobin 12.9 gm/dl (12.5-18.0); Lymphocyte (Absolute #) 2.12 (1.0-4.6); Lymphocytes % 29.7 % (24.0-44.0); Mean Cell Volume 92.8 fl (78-100); Mean Corpuscular Hemoglobin 29.9 pg (26-32); Mean Corpuscular Hgb Concent. 32.3 g/dl (32-36); Mean Platelet Volume 10.9 fl (6-9.5); Monocyte (Absolute #) 0.83 (0.0-1.3); Monocytes % 11.6 % (0.0-12.0); Platelet Count 207 K/mm3 (150-450); Red Blood Count 4.31 M/mm3 (4.1-5.6); Red Cell Distribution Width 13.9 % (11.5-14.0); White Blood Count 7.1 K/mm3 (4.0-10.5)
--- NOTE | 2017-12-25 07:34 | PCM.NOTE ---
Date and Time: 12/25/17 0733 Subjective Assessment: patient very sleepy, was up most of the night. he denies any new complaints today. Objective Exam General Appearance: no apparent distress, alert Skin Exam: normal color, warm, dry Respiratory Exam: normal breath sounds, lungs clear, No respiratory distress Cardiovascular Exam: regular rate/rhythm, normal heart sounds Gastrointestinal/Abdomen Exam: soft, No tenderness, No mass OBJECTIVE DATA Vital Signs: Vital Signs - 24 hr Temp Pulse Resp BP Pulse Ox 12/25/17 03:50 97.9 F 60 17 126/68 94 L 12/24/17 23:53 98.0 F 64 16 118/71 96 12/24/17 20:00 97.7 F 70 18 117/69 98 12/24/17 16:26 98.5 F 61 18 136/70 95 12/24/17 16:25 98.0 F 75 117/81 98 12/24/17 15:32 98 12/24/17 15:08 75 18 117/81 97 12/24/17 15:03 70 18 117/81 97 12/24/17 14:43 98 12/24/17 14:33 98.0 F 85 18 143/94 98 Pain Assessment - Last Documented Pain Intensity 0 Pain Scale Used 0-10 Pain Scale Intake and Output: Intake & Output 12/22/17 12/23/17 12/24/17 12/25/17 11:59 11:59 11:59 11:59 Intake Total 1868 Balance 1868 Weight 66.6 kg Lab Results: Accuchecks Date 12/24/17 Time 21:30 Accucheck Value: 149 Lab Results-Last 24 Hours 12/24/17 12/24/17 12/24/17 Range/Units 14:30 14:30 14:59 WBC 5.7 (4.0-10.5) K/mm3 RBC 5.40 (4.1-5.6) M/mm3 Hgb 16.3 (12.5-18.0) gm/dl Hct 50.1 H (42-50) % MCV 92.8 (78-100) fl MCH 30.2 (26-32) pg MCHC 32.5 (32-36) g/dl RDW 14.2 H (11.5-14.0) % Plt Count 232 (150-450) K/mm3 MPV 10.6 H (6-9.5) fl Gran % 54.7 (36.0-66.0) % Eos # (Auto) 0.23 (0-0.5) Absolute Lymphs (auto) 1.77 (1.0-4.6) Absolute Monos (auto) 0.58 (0.0-1.3) Lymphocytes % 30.9 (24.0-44.0) % Monocytes % 10.1 (0.0-12.0) % Eosinophils % 4.0 (0.00-5.0) % Basophils % 0.3 (0.0-0.4) % Absolute Granulocytes 3.13 (1.4-6.9) Basophils # 0.02 (0-0.4) APTT 28.9 (24.1-36.1) SECONDS Sodium 143 (137-145) mmol/L Potassium 3.8 (3.5-5.1) mmol/L Chloride 104 (98-107) mmol/L Carbon Dioxide 25 (22-30) mmol/L Anion Gap 17.7 H (5-15) MEQ/L BUN 18 (9-20) mg/dL Creatinine 1.09 (0.66-1.25) mg/dL Estimated GFR > 60.0 ML/MIN Glucose 167 H (74-106) mg/dL Calcium 10.3 H (8.4-10.2) mg/dL //18 Range/Units 05:36 WBC 7.1 (4.0-10.5) K/mm3 RBC 4.31 (4.1-5.6) M/mm3 Hgb 12.9 (12.5-18.0) gm/dl Hct 40.0 L (42-50) % MCV 92.8 (78-100) fl MCH 29.9 (26-32) pg MCHC 32.3 (32-36) g/dl RDW 13.9 (11.5-14.0) % Plt Count 207 (150-450) K/mm3 MPV 10.9 H (6-9.5) fl Gran % 54.2 (36.0-66.0) % Eos # (Auto) 0.29 (0-0.5) Absolute Lymphs (auto) 2.12 (1.0-4.6) Absolute Monos (auto) 0.83 (0.0-1.3) Lymphocytes % 29.7 (24.0-44.0) % Monocytes % 11.6 (0.0-12.0) % Eosinophils % 4.1 (0.00-5.0) % Basophils % 0.4 (0.0-0.4) % Absolute Granulocytes 3.87 (1.4-6.9) Basophils # 0.03 (0-0.4) APTT (24.1-36.1) SECONDS Sodium (137-145) mmol/L Potassium (3.5-5.1) mmol/L Chloride (98-107) mmol/L Carbon Dioxide (22-30) mmol/L Anion Gap (5-15) MEQ/L BUN (9-20) mg/dL Creatinine (0.66-1.25) mg/dL Estimated GFR ML/MIN Glucose (74-106) mg/dL Calcium (8.4-10.2) mg/dL Radiology Exams: Radiology Procedures Category Date Time Status CHEST 1 VIEW (PORTABLE) Stat Exams 12/24/17 14:29 Completed ECHO W/2D AND DOPPLER [US] Routine Exams 12/25/17 Ordered HEAD WITHOUT CONTRAST [CT] Stat Exams 12/24/17 14:29 Completed MRA NECK WITHOUT CONTRAST [MRI] Routine Exams 12/25/17 17:04 Ordered MRI BRAIN W/O CONTRAST [MRI] Routine Exams 12/25/17 17:04 Ordered Assessment/Plan (1) CVA (cerebrovascular accident) Current Visit: Yes Status: Acute Assessment & Plan: awaiting MRI and MRA results today, echo just completed this am. continue aspirin and plavix for now. patient is normotensive Code(s): I63.9 - CEREBRAL INFARCTION, UNSPECIFIED (2) Dysphagia as late effect of cerebrovascular accident (CVA) Current Visit: Yes Status: Acute Code(s): I69.391 - DYSPHAGIA FOLLOWING CEREBRAL INFARCTION (3) Weakness Current Visit: No Status: Acute Code(s): R53.1 - WEAKNESS (4) Hemiparesis Current Visit: Yes Status: Acute Code(s): G81.90 - HEMIPLEGIA, UNSPECIFIED AFFECTING UNSPECIFIED SIDE (5) Hypertension Current Visit: Yes Status: Acute Code(s): I10 - ESSENTIAL (PRIMARY) HYPERTENSION
[2017-12-25 08:24] LABS: ALBUMIN 3.6 g/dL (3.5-5.0); ALKALINE PHOSPHATASE 64 U/L (38-126); ANION GAP 14.5 MEQ/L (5-15); BLOOD UREA NITROGEN 14 mg/dL (9-20); CHLORIDE 105 mmol/L (98-107); Calcium 9.1 mg/dL (8.4-10.2); Carbon Dioxide 25 mmol/L (22-30); Creatinine 1 0.91 mg/dL (0.66-1.25); Glucose 99 mg/dL (74-106); Potassium 3.6 mmol/L (3.5-5.1); SGOT/AST 17 U/L (17-59); SGPT/ALT 18 U/L (0-50); SODIUM 140 mmol/L (137-145); Total Protein 6.2 g/dL (6.3-8.2)
[2017-12-25] MEDS: Pepcid 20 MG PO SCH (10:07)
[2017-12-25] MEDS: ECOTRIN 81 MG PO SCH (10:07)
[2017-12-25] MEDS: Flomax 0.4 MG PO SCH (10:07)
[2017-12-25] MEDS: PLAVIX 75 MG Tablet PO SCH (10:07)
--- NOTE | 2017-12-25 14:00 | XRAY ---
Indication: Generalized weakness. History stroke. Sagittal, coronal, and axial MRI brain was performed without contrast using T1, T2, FLAIR, diffusion, and ADC sequences. Comparison: August 28, 2016. Several sequences are degraded by motion artifact. Grossly stable age-appropriate global atrophy and moderate periventricular degenerative micro-ischemia signal bilaterally. Stable small remote infarcts in the right cerebellum, left sharon tiny remote lacunar infarct, and bilateral yepez radiata remote lacunar infarcts. New finding right basal ganglia remote-appearing lacunar infarct. Diffusion images demonstrates new 3 x 11 mm focus of serpiginous restricted signal in the left mid to posterior yepez radiata favoring acute micro-ischemia. Smaller focus of new acute micro-ischemia signal seen left mid centrum semiovale and left posterior temporal lobe. No acute intracranial hemorrhage, abnormal extra-axial fluid collection, or mass effect. Fourth ventricle is midline. Paranasal sinuses are clear. Impression: 1. Limited exam due to motion artifact. 2. Again global atrophy and degenerative micro-ischemia. New multifocal acute micro-ischemia signal in the left cerebral hemisphere as detailed. No hemorrhage or mass effect. 3. Stable multifocal remote infarcts with new right basal ganglia remote lacunar infarct.
[2017-12-25] MEDS: ZOCOR 20MG PO SCH (22:08)
[2017-12-25] MEDS: NORVASC 5 MG PO SCH (22:08)
[2017-12-26 00:48] LABS: Bilirubin NEGATIVE (NEGATIVE); Blood LARGE Ery/ul (0-5); Glucose NEGATIVE (NEGATIVE); Ketones NEGATIVE (NEGATIVE); Leukocyte Esterase MODERATE (NEGATIVE); Nitrite NEGATIVE (NEGATIVE); Protein,Urine Dip NEGATIVE (Negative); Specific Gravity 1.004 (1.005-1.025); Urobilinogen NEGATIVE mg/dL (0-1)
[2017-12-26 01:09] LABS: Appearance HAZY (CLEAR)
[2017-12-26] MEDS: Sodium Chloride 0.9% 1000 ML 1,000 ML IV SCH ×2 (07:47→22:45)
--- NOTE | 2017-12-26 08:26 | PCM.NOTE ---
Date and Time: 12/26/17823 Subjective Assessment: patient with no new complaints, deficits are unchanged. Objective Exam General Appearance: no apparent distress Neurologic Exam: motor deficits, sensory deficit (right hemiparesis strength 2-3 /5 on right upper and lower ext), No nml station & gait, No sensation nml Skin Exam: normal color, warm, dry Respiratory Exam: normal breath sounds, lungs clear, No respiratory distress Cardiovascular Exam: regular rate/rhythm, normal heart sounds Gastrointestinal/Abdomen Exam: soft, No tenderness, No mass OBJECTIVE DATA Vital Signs: Vital Signs - 24 hr Temp Pulse Resp BP Pulse Ox 12/26/17 06:53 97.8 F 74 20 126/68 96 12/26/17 03:46 97.8 F 65 17 121/72 95 12/26/17 00:00 98.0 F 61 18 145/69 97 12/25/17 19:39 98.6 F 70 18 134/72 96 12/25/17 16:00 98.7 F 59 L 18 111/67 94 L 12/25/17 12:00 98.4 F 66 18 112/60 95 Pain Assessment - Last Documented Pain Intensity 0 Pain Scale Used [facility] Intake and Output: Intake & Output 12/23/17 12/24/17 12/25/17 12/26/17 11:59 11:59 11:59 11:59 Intake Total 1928 1340 Balance 1928 1340 Weight 66.6 kg 71 kg Lab Results: Accuchecks Date 12/26/17 Date 12/25/17 Date 12/25/17 Date 12/25/17 Time 07:30 Time 22:00 Time 16:30 Time 11:30 Accucheck Value: 99 Accucheck Value: 120 Accucheck Value: 112 Accucheck Value: 145 Lab Results-Last 24 Hours 12/24/17 12/25/17 Range/Units 00:17 05:36 Sodium 140 (137-145) mmol/L Potassium 3.6 (3.5-5.1) mmol/L Chloride 105 (98-107) mmol/L Carbon Dioxide 25 (22-30) mmol/L Anion Gap 14.5 (5-15) MEQ/L BUN 14 (9-20) mg/dL Creatinine 0.91 (0.66-1.25) mg/dL Estimated GFR > 60.0 ML/MIN Glucose 99 (74-106) mg/dL Calcium 9.1 (8.4-10.2) mg/dL Total Bilirubin 1.40 H (0.2-1.3) mg/dL AST 17 (17-59) U/L ALT 18 (0-50) U/L Alkaline Phosphatase 64 (38-126) U/L Serum Total Protein 6.2 L (6.3-8.2) g/dL Albumin 3.6 (3.5-5.0) g/dL Urine Color LIGHT RED (YELLOW) Urine Appearance HAZY (CLEAR) Urine pH 6.0 (5-6) Ur Specific [place] 1.004 (1.005-1.025) Urine Protein NEGATIVE (Negative) Urine Ketones NEGATIVE (NEGATIVE) Urine Blood LARGE (0-5) Stone/ul Urine Nitrite NEGATIVE (NEGATIVE) Urine Bilirubin NEGATIVE (NEGATIVE) Urine Urobilinogen NEGATIVE (0-1) mg/dL Ur Leukocyte Esterase MODERATE (NEGATIVE) Urine WBC (Auto) 16-25 (0-5) /HPF Urine RBC (Auto) 26-50 (0-2) /HPF U Epithel Cells (Auto) FEW (FEW) /HPF Urine Bacteria (Auto) FEW (NEGATIVE) /HPF Urine Culture Reflexed YES (NO) Urine Glucose NEGATIVE (NEGATIVE) mg/dL Radiology Exams: Radiology Procedures Category Date Time Status CAROTID BILATERAL [US] Urgent Exams 12/26/17 Ordered CHEST 1 VIEW (PORTABLE) Stat Exams 12/24/17 14:29 Completed ECHO W/2D AND DOPPLER [US] Routine Exams 12/25/17 09:13 Taken HEAD WITHOUT CONTRAST [CT] Stat Exams 12/24/17 14:29 Completed MRI BRAIN W/O CONTRAST [MRI] Routine Exams 12/25/17 17:04 Completed Multi-Disciplinary Progress Notes: Multi-Disciplinary Progress Notes 12/25/17 13:00 (created 12/25/17 13:40) Case Management Note by Shelby Ngo LONG DISCUSSION WITH PT'S /FAMILY IN REGARDS TO NEEDS AT DISCHARGE. DAUGHTER REPORTS THAT PT'S HAD BEEN PRIMARY CAREGIVER PRIOR TO COMING TO HOSPITAL WITH [facility]. REPORTS THAT TAKES CARE OF PT, BUT SHE ASSISTS IN COMMUNICATING WITH HEALTH CARE PROVIDERS, REPORTS THAT PT 'S IS [place] AND SPEAKS [place], AND DOES NOT ALWAYS UNDERSTAND ( IS LAY CAREGIVER). DAUGHTER ACTIVELY INVOLVED IN PLAN OF CARE AND ALSO, ASSISTS WHEN NEEDED. REPORTS THAT THEY HAVE DISCUSSED A FAMILY AND THAT THEY FEEL THAT PT WILL REQUIRE REHAB STAY ON DISCHARGE. REQUESTS REFERRAL TO [facility], AND PLAN FOR EXTENDED REHAB STAY ON DISCHARGE. DAUGHTER REPORTS THAT PT IS NOT ABLE TO BEAR WEIGHT AT THIS TIME, HE HAS NO FEELING OF BLE. DENIES ADDNL NEEDS AT PRESENT. WILL FOLLOW. Initialized on 12/25/17 13:40 - END OF NOTE Assessment/Plan (1) CVA (cerebrovascular accident) Current Visit: Yes Status: Acute Onset Date: ~12/24/17 Assessment & Plan: MRI shows multiple new areas, no arrythmia noted on telemetry or EKG. echo pending, unable to toelrate MRA so will get carotid doppler today to r/o significant stenosis. no obvious embolic source present. plan will be to discharge to [facility] for rehab Code(s): I63.9 - CEREBRAL INFARCTION, UNSPECIFIED (2) Dysphagia as late effect of cerebrovascular accident (CVA) Current Visit: Yes Status: Acute Onset Date: ~12/24/17 Code(s): I69.391 - DYSPHAGIA FOLLOWING CEREBRAL INFARCTION (3) Weakness Current Visit: No Status: Acute Code(s): R53.1 - WEAKNESS (4) Hemiparesis Current Visit: Yes Status: Acute Onset Date: ~12/24/17 Code(s): G81.90 - HEMIPLEGIA, UNSPECIFIED AFFECTING UNSPECIFIED SIDE (5) Hypertension Current Visit: Yes Status: Acute Onset Date: ~12/24/17 Code(s): I10 - ESSENTIAL (PRIMARY) HYPERTENSION
[2017-12-26] MEDS: Pepcid 20 MG PO SCH (09:49)
[2017-12-26] MEDS: Flomax 0.4 MG PO SCH (09:49)
[2017-12-26] MEDS: ECOTRIN 81 MG PO SCH (09:49)
[2017-12-26] MEDS: PLAVIX 75 MG Tablet PO SCH (09:49)
--- NOTE | 2017-12-26 10:15 | XRAY ---
Indication: CVA. Two-dimensional sonogram and color Doppler imaging of the carotid arteries of the neck performed. Comparison: None Examination of the right carotid circulation demonstrates slightly tortuous common carotid artery. Very minimal calcified plaquing at the level of the bulb extending into the origin of the external carotid artery. Widely patent internal carotid artery. PSV of the CCA is 69 cm/s. PSV of the ICA is 81 cm/s. ICA/CCA ratio is 1.2. Normal antegrade vertebral artery flow. Examination of the left carotid circulation also demonstrates very minimal calcified plaquing at the level of the bulb extending into the origin of the internal carotid artery, best seen on cine images. Widely patent external carotid artery. PSV of the CCA is 81 cm/s. PSV of the ICA is 65 cm/s. ICA/CCA ratio 0.8. Normal antegrade vertebral artery flow. Impression: Very minimal arteriosclerotic plaquing bilaterally. Velocity measurements and ratios are negative for hemodynamically significant flow-limiting stenosis.
--- NOTE | 2017-12-26 11:49 | XRAY ---
Indication: Lung nodule. History of stroke. Multiple contiguous axial images obtained through the chest without contrast as ordered. Comparison: August 17, 2017. Study slightly degraded by respiration artifact, especially through the levels of the previous right lower lobe subpleural nodularity. The irregular subpleural noncalcified nodularity in the posterior lateral right lower lobe appears grossly stable in size and configuration. Also stable minimal bibasilar fibrosis/scarring. No new pulmonary mass, infiltrate, or effusion. Heart is not enlarged. Aorta is normal in course and caliber. Stable aortic and coronary calcifications. No pathologic mediastinal lymphadenopathy. Stable small hiatal hernia. Bony thorax intact again with mild degenerative changes throughout the spine. Limited upper abdomen demonstrates stable hepatic and bilateral renal cysts. Impression: 1. Respiration artifact including images through the right lower lobe nodule in question. Grossly stable right lower lobe subpleural noncalcified nodularity. 2. No new or acute cardiopulmonary abnormalities on this noncontrast exam. 3. Stable small hiatal hernia, hepatic cyst, and renal cysts. CT DI 15.50
[2017-12-26] MEDS: NORVASC 5 MG PO SCH (21:25)
[2017-12-26] MEDS: ZOCOR 20MG PO SCH (21:25)
--- NOTE | 2017-12-27 07:53 | PCM.DS ---
Discharge Summary Date of Admission: 12/24/17 16:06 Admitting Physician: LANDRY LUCIA Primary Care Provider: LANDRY LUCIA Allergies Allergies No Known Drug Allergies Allergy (Verified 12/24/17 14:44) Hospital Summary - Hospital Course Hospital Course: patient was admitted, hx of prior cva with right hemiparesis. now having difficulty with speech and standing to transfer etc. MRI shows new infarct on left, carotid doppler no significant blockage, echo pending but no report of thrombus. patient has had no rhythm issues while he was on telemetry. he will continue aspirin and plavix, transfer to [facility] for rehab - Vitals & Intake/Output Vital Signs: Vital Signs Temperature 97.8 F 12/27/17 07:27 Pulse Rate 76 12/27/17 07:27 Respiratory Rate 18 12/27/17 07:27 Blood Pressure 140/68 12/27/17 07:27 O2 Sat by Pulse Oximetry 96 12/27/17 07:27 Intake & Output: Intake & Output 12/24/17 12/25/17 12/26/17 12/27/17 11:59 11:59 11:59 11:59 Intake Total 1928 1460 2947 Balance 1928 1460 2947 Weight 66.6 kg 71 kg 66.2 kg - Lab Result Diagrams: 12/25/17 05:36 12/25/17 05:36 Lab Results-Last 24 Hrs: Accuchecks Date 12/26/17 Date 12/26/17 Time 16:30 Time 11:30 Accucheck Value: 100 Accucheck Value: 126 Accucheck Value: 137 Accucheck Value: 187 Micro Results-Entire Visit: Accuchecks Date 12/26/17 Date 12/26/17 Time 16:30 Time 11:30 Accucheck Value: 100 Accucheck Value: 126 Accucheck Value: 137 Accucheck Value: 187 - Radiology Exams Ordered Rad Exams-Entire Visit: Radiology Procedures Category Date Time Status CAROTID BILATERAL [US] Urgent Exams 12/26/17 09:47 Completed CHEST WITHOUT CONTRAST [CT] Routine Exams 12/26/17 10:51 Completed ECHO W/2D AND DOPPLER [US] Routine Exams 12/25/17 09:13 Taken MRI BRAIN W/O CONTRAST [MRI] Routine Exams 12/25/17 17:04 Completed - Procedures and Test Procedures and Tests throughout Hospitalization: Therapy Orders & Screens 12/24/17 17:05 Speech Therapy Eval & Treat [ST Eval & Treat ( Order)] .as ordered Comment: Physician Instructions: Reason For Exam: Evaluate: Yes Treat: Yes Reason for Eval: cva, difficulty swallowing Diagnosis: cva 12/24/17 17:08 OT Eval and Treat ( Order) ROUTINE Comment: Consulting Provider: Physician Instructions: Reason For Exam: cva, right hemiparesis Diagnosis: cva PT Eval & Treat ( Order) ROUTINE Reason for Eval:: cva, right hemiparesis Diagnosis: cva Discharge Exam General Appearance: no apparent distress, alert Neurologic Exam: alert, cooperative, motor deficits, sensory deficit, other ( right hemiparesis strength 2/5 RLE, 2/5 RUE) Skin Exam: normal color, warm, dry Eye Exam: PERRL, EOMI, eyes nml inspection Respiratory Exam: normal breath sounds, lungs clear, No respiratory distress Cardiovascular Exam: regular rate/rhythm, normal heart sounds Gastrointestinal/Abdomen Exam: soft, No tenderness, No mass Extremity Exam: normal inspection, normal range of motion Final Diagnosis/Problem List - Final Discharge Diagnosis/Problem (1) CVA (cerebrovascular accident) Current Visit: Yes Status: Acute Onset Date: ~12/24/17 (2) Dysphagia as late effect of cerebrovascular accident (CVA) Current Visit: Yes Status: Acute Onset Date: ~12/24/17 (3) Weakness Current Visit: No Status: Acute (4) Hemiparesis Current Visit: Yes Status: Acute Onset Date: ~12/24/17 (5) Hypertension Current Visit: Yes Status: Acute Onset Date: ~12/24/17 - Discharge Disposition: DC TO [facility] Condition: Stable Prescriptions: Continue Famotidine 20 mg PO DAILY Clopidogrel Bisulfate [Clopidogrel] 75 mg PO DAILY Atorvastatin Calcium 80 mg PO HS Amlodipine Besylate 5 mg PO HS Tamsulosin HCl 0.4 mg PO DAILY Aspirin 81 gm Chew [Baby Aspirin 81 mg Chew] 81 mg PO DAILY
[2017-12-27] MEDS: Pepcid 20 MG PO SCH (09:10)
[2017-12-27] MEDS: PLAVIX 75 MG Tablet PO SCH (09:10)
[2017-12-27] MEDS: ECOTRIN 81 MG PO SCH (09:10)
[2017-12-27] MEDS: Flomax 0.4 MG PO SCH (09:10)
[2017-12-27] MEDS ORDERED: TYLENOL EXTRA STRENGTH 500 MG PO ONE (11:00)
[2017-12-27 12:07] VITALS: BP 148/78; PULSE 82; O2SAT 95
--- NOTE | 2017-12-31 14:06 | ECHO ---
Transthoracic echocardiographic examination and color Doppler was done on 12/25/2017. INDICATION: Stroke. IMPRESSION: 1) NO DEFINITE REGIONAL WALL MOTION ABNORMALITY. ESTIMATED GLOBAL LEFT VENTRICULAR EJECTION FRACTION OF 60%. 2) TRACE MITRAL REGURGITATION. 3) TRACE TRICUSPID REGURGITATION. RIGHT VENTRICULAR SYSTOLIC PRESSURE OF 24 MM OF MERCURY. 4) MILD PULMONIC INSUFFICIENCY. 5) SCLEROTIC AORTIC VALVE. 6) LEFT VENTRICULAR HYPERTROPHY. The left ventricle is visualized and demonstrated adequate motion of all the segments. Estimated global left ventricular ejection fraction of around 60%. There mild left ventricular hypertrophy. The mitral valve is seen and this opens adequately. There is trace mitral regurgitation. Left atrium is normal. The aortic valve is sclerotic. There is no significant gradient across the left ventricular outflow tract. There is trace tricuspid regurgitation. The right ventricular systolic pressure of 24 mm of Mercury. There is also mild pulmonic insufficiency.
== END 2017-12-27 13:30 | DRG 65 ==
LOC: ED 14:13 → MED SURG 16:06
PROVIDERS: ADMIT Family Medicine; ATTEND Family Medicine
DX: I63.9 Cerebral infarction, unspecified (principal); G81.90 Hemiplegia, unspecified affecting unspecified side; R13.10 Dysphagia, unspecified; R47.01 Aphasia; R73.02 Impaired glucose tolerance (oral); R32 Unspecified urinary incontinence; R15.9 Full incontinence of feces; R53.1 Weakness; I10 Essential (primary) hypertension; K21.9 Gastro-esophageal reflux disease without esophagitis; Z86.73 Personal history of transient ischemic attack (TIA), and cerebral infarction without residual deficits; Z79.82 Long term (current) use of aspirin; Z79.899 Other long term (current) drug therapy
CPT/HCPCS: 36000; 36415; 70450; 70551; 71045; 71250; 80048; 80053; 81001; 82962; 85025; 85730; 87077; 87086; 87186; 90662; 93005; 93041; 93306; 93880; 96360; 99285; G0008; A9270-GY

== ENCOUNTER 2018-03-16 15:21 | Emergency (ER) | payer MEDICARE, OTHER ==
--- NOTE | 2018-03-16 15:54 | ERPHSYRPT ---
- History of Present Illness Time Seen by Provider: 03/16/18 15:33 Source: patient, family Exam Limitations: clinical condition Patient Subjective Stated Complaint: FAMILY STATES HAS BEEN ACTING DIFFERENT TODAY THAN YESTERDAY, hOME HEALTH CARE NURSE WAS CONCERNED OF HIS INCREASED WEAKNESS. Triage Nursing Assessment: ALERT BUT CONFUSED. UNABLE TO DETERMINE WHERE HE IS.. ems STES HE WAS RELEASED FROM [facility] FOR REHAB FOR POST STROKE. WEAK WITH HIS SPEECH. 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 LARKIN. WARM TO TOUCH. Physician History: 68 y/o white male, who recently discharged to home from [facility] for rehab after a stroke, presents via ems for complaint of weakness. pt states he does not have pain anywhere. he arrives with fever and feels nauseated. he denies soa. Timing/Duration: today Severity: moderate Associated Symptoms: nausea, fever, malaise, weakness, No vomiting, No abdominal pain, No shortness of breath, No cough Allergies/Adverse Reactions: No Known Drug Allergies Allergy (Verified 12/24/17 14:44) Home Medications: Amlodipine Besylate 5 mg PO HS 08/16/17 [History] Aspirin 81 gm Chew [Baby Aspirin 81 mg Chew] 81 mg PO DAILY 08/16/17 [ History] Atorvastatin Calcium 80 mg PO HS 08/16/17 [History] Clopidogrel Bisulfate [Clopidogrel] 75 mg PO DAILY 08/16/17 [History] Famotidine 20 mg PO DAILY 08/16/17 [History] Tamsulosin HCl 0.4 mg PO DAILY 08/16/17 [History] Hx Tetanus, Diphtheria Vaccination/Date Given: Yes Hx Influenza Vaccination/Date Given: No Hx Pneumococcal Vaccination/Date Given: No Immunizations Up to Date: (UNKNOWN) - Review of Systems Constitutional: Fever, Weakness Eyes: No Symptoms, No Discharge, No Vision Changes Ears, Nose, & Throat: No Symptoms Respiratory: No Symptoms, No Cough, No Dyspnea, No Stridor, No Wheezing Cardiac: No Symptoms, No Chest Pain, No Palpitations, No Syncope Abdominal/Gastrointestinal: Nausea, No Abdominal Pain, No Vomiting, No Diarrhea Genitourinary Symptoms: No Symptoms, No Dysuria, No Hematuria Musculoskeletal: No Symptoms Skin: No Symptoms Neurological: No Symptoms Psychological: No Symptoms Endocrine: No Symptoms Hematologic/Lymphatic: No Symptoms Immunological/Allergic: No Symptoms All Other Systems: Reviewed and Negative - Past Medical History Pertinent Past Medical History: Yes Neurological History: Stroke ENT History: No Pertinent History Cardiac History: Hypertension Respiratory History: No Pertinent History Endocrine Medical History: No Pertinent History Musculoskeletal History: No Pertinent History GI Medical History: GERD History: No Pertinent History Psycho-Social History: No Pertinent History Male Reproductive Disorders: Prostate Problems - Past Surgical History Past Surgical History: Yes Neuro Surgical History: No Pertinent History Cardiac: No Pertinent History Respiratory: No Pertinent History Gastrointestinal: Appendectomy Genitourinary: No Pertinent History Musculoskeletal: No Pertinent History Male Surgical History: No Pertinent History - Social History Smoking Status: Unknown if ever smoked How long have you smoked: 30 Exposure to second hand smoke: No Alcohol Use: None Drug Use: none Patient Lives Alone: No Significant Family History: no pertinent family hx - Nursing Vital Signs Nursing Vital Signs: Initial Vital Signs Temperature 99.0 F 03/16/18 15:21 Pulse Rate 96 H 03/16/18 15:21 Respiratory Rate 18 03/16/18 15:21 Blood Pressure 125/83 03/16/18 15:21 O2 Sat by Pulse Oximetry 99 03/16/18 15:21 Pain Scale Pain Intensity 0 - Physical Exam General Appearance: mild distress, alert, lethargy Eye Exam: PERRL/EOMI Ears, Nose, Throat Exam: normal ENT inspection, moist mucous membranes Neck Exam: normal inspection, non-tender, supple, full range of motion Respiratory Exam: normal breath sounds, lungs clear, airway intact, No chest tenderness, No respiratory distress, No diminished breath sounds, No accessory muscle use, No rhonchi, No wheezing, No stridor Cardiovascular Exam: regular rate/rhythm, normal heart sounds, normal peripheral pulses Gastrointestinal/Abdomen Exam: soft, normal bowel sounds, No tenderness, No guarding, No rebound Rectal Exam: not done Back Exam: normal inspection, normal range of motion, No CVA tenderness, No vertebral tenderness Extremity Exam: normal inspection, normal range of motion, pelvis stable Neurologic Exam: alert, oriented x 3, cooperative, 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 Skin Exam: normal color, warm, dry Lymphatic Exam: adenopathy SpO2 Interpretation: normal SpO2: 99 Oxygen Delivery: Room Air - Course Nursing assessment & vital signs reviewed: Yes EKG Interpreted by Me: RATE (93), Sinus Rhythm, NORMAL AXIS, NORMAL INTERVALS, NORMAL QRS, Non-specific ST Changes Ordered Tests: Active Orders 24 hr Category Date Time Status Clean Catch Urine Specimen STAT Care 03/16/18 15:55 Active EKG-ER Only STAT Care 03/16/18 15:55 Active IV Insertion STAT Care 03/16/18 15:55 Active Pulse Oximetry (ED) STAT Care 03/16/18 15:55 Active CHEST 1 VIEW (PORTABLE) Stat Exams 03/16/18 15:55 Completed HEAD WITHOUT CONTRAST [CT] Stat Exams 03/16/18 15:56 Completed BLOOD CULTURE Stat Lab 03/16/18 16:21 Received CBC W DIFF Stat Lab 03/16/18 16:21 Completed CMP Stat Lab 03/16/18 16:21 Completed CULTURE,URINE Stat Lab 03/16/18 16:29 Received Lactic Acid Stat Lab 03/16/18 16:17 Results [place] Screen Stat Lab 03/16/18 16:21 Completed UA W/RFX UR CULTURE Stat Lab 03/16/18 16:29 Completed Medication Summary Generic Name Dose Route Start Last Admin Trade Name Freq PRN Reason Stop Dose Admin Ceftriaxone Sodium/Dextrose 1 g in 50 mls @ 100 mls/hr 03/16/18 17:44 Rocephin 1 Gm-D5w 50 Ml Bag IV 03/16/18 18:13 STAT STA Discontinued Medications Generic Name Dose Route Start Last Admin Trade Name Freq PRN Reason Stop Dose Admin Sodium Chloride 1,000 mls @ 999 mls/hr 03/16/18 15:55 03/16/18 16:09 Sodium Chloride 0.9% 1000 Ml IV 03/16/18 16:55 999 mls/hr .Q1H1M STA Administration Sodium Chloride Confirm 03/16/18 16:05 Sodium Chloride 0.9% 1000 Ml Administered 03/16/18 16:06 Dose 1,000 mls @ ud .ROUTE .STK-MED ONE Ceftriaxone Sodium/Dextrose Confirm 03/16/18 17:50 Rocephin 1 Gm-D5w 50 Ml Bag Administered 03/16/18 17:51 Dose 1 g in 50 mls @ ud IV .STK-MED ONE Ondansetron HCl 4 mg 03/16/18 15:55 03/16/18 16:09 Zofran 4 Mg/2 Ml Vial IV 03/16/18 15:56 4 mg STAT STA Administration Ondansetron HCl Confirm 03/16/18 16:05 Zofran 4 Mg/2 Ml Vial Administered 03/16/18 16:06 Dose 4 mg .ROUTE .STK-MED ONE Lab/Rad Data: Laboratory Result Diagrams 03/16/18 16:21 03/16/18 16:21 Laboratory Results 03/16/18 03/16/18 03/16/18 Range/Units 16:29 16:21 16:21 WBC (4.0-10.5) K/mm3 RBC (4.1-5.6) M/mm3 Hgb (12.5-18.0) gm/dl Hct (42-50) % MCV (78-100) fl MCH (26-32) pg MCHC (32-36) g/dl RDW (11.5-14.0) % Plt Count (150-450) K/mm3 MPV (6-9.5) fl Gran % (36.0-66.0) % Eos # (Auto) (0-0.5) Absolute Lymphs (auto) (1.0-4.6) Absolute Monos (auto) (0.0-1.3) Lymphocytes % (24.0-44.0) % Monocytes % (0.0-12.0) % Eosinophils % (0.00-5.0) % Basophils % (0.0-0.4) % Absolute Granulocytes (1.4-6.9) Basophils # (0-0.4) Sodium (137-145) mmol/L Potassium (3.5-5.1) mmol/L Chloride (98-107) mmol/L Carbon Dioxide (22-30) mmol/L Anion Gap (5-15) MEQ/L BUN (9-20) mg/dL Creatinine (0.66-1.25) mg/dL Estimated GFR ML/MIN Glucose (74-106) mg/dL Lactic Acid (0.4-2.0) Calcium (8.4-10.2) mg/dL Total Bilirubin (0.2-1.3) mg/dL AST (17-59) U/L ALT (0-50) U/L Alkaline Phosphatase (38-126) U/L Serum Total Protein (6.3-8.2) g/dL Albumin (3.5-5.0) g/dL Urine Color YELLOW (YELLOW) Urine Appearance CLOUDY (CLEAR) Urine pH 5.0 (5-6) Ur Specific Daniel 1.027 (1.005-1.025) Urine Protein >=500 (Negative) Urine Ketones NEGATIVE (NEGATIVE) Urine Blood LARGE (0-5) Stone/ul Urine Nitrite NEGATIVE (NEGATIVE) Urine Bilirubin NEGATIVE (NEGATIVE) Urine Urobilinogen NEGATIVE (0-1) mg/dL Ur Leukocyte Esterase MODERATE (NEGATIVE) Urine WBC (Auto) >100 (0-5) /HPF Urine RBC (Auto) >101 (0-2) /HPF U Epithel Cells (Auto) NONE (FEW) /HPF Urine Bacteria (Auto) MODERATE (NEGATIVE) /HPF Urine Mucus (Auto) SLIGHT (NEGATIVE) /HPF Urine Culture Reflexed YES (NO) Urine Glucose NEGATIVE (NEGATIVE) mg/dL Monoscreen NEGATIVE (Negative) Influenza Type A Ag NEGATIVE (NEGATIVE) Influenza Type B Ag NEGATIVE (NEGATIVE) RSV (PCR) NEGATIVE (Negative) Group A Strep Antibody NEGATIVE (NEGATIVE) 03/16/18 03/16/18 03/16/18 Range/Units 16:21 16:21 16:17 WBC 9.2 (4.0-10.5) K/mm3 RBC 5.47 (4.1-5.6) M/mm3 Hgb 16.2 (12.5-18.0) gm/dl Hct 51.0 H (42-50) % MCV 93.2 (78-100) fl MCH 29.6 (26-32) pg MCHC 31.8 L (32-36) g/dl RDW 15.5 H (11.5-14.0) % Plt Count 223 (150-450) K/mm3 MPV 10.2 H (6-9.5) fl Gran % 66.8 H (36.0-66.0) % Eos # (Auto) 0.03 (0-0.5) Absolute Lymphs (auto) 1.74 (1.0-4.6) Absolute Monos (auto) 1.24 (0.0-1.3) Lymphocytes % 19.0 L (24.0-44.0) % Monocytes % 13.6 H (0.0-12.0) % Eosinophils % 0.3 (0.00-5.0) % Basophils % 0.3 (0.0-0.4) % Absolute Granulocytes 6.11 (1.4-6.9) Basophils # 0.03 (0-0.4) Sodium 149 H (137-145) mmol/L Potassium 3.9 (3.5-5.1) mmol/L Chloride 112 H (98-107) mmol/L Carbon Dioxide 26 (22-30) mmol/L Anion Gap 15.9 H (5-15) MEQ/L BUN 34 H (9-20) mg/dL Creatinine 1.41 H (0.66-1.25) mg/dL Estimated GFR 53.3 ML/MIN Glucose 164 H (74-106) mg/dL Lactic Acid 2.4 H (0.4-2.0) Calcium 10.0 (8.4-10.2) mg/dL Total Bilirubin 2.10 H (0.2-1.3) mg/dL AST 15 L (17-59) U/L ALT 18 (0-50) U/L Alkaline Phosphatase 97 (38-126) U/L Serum Total Protein 8.7 H (6.3-8.2) g/dL Albumin 5.0 (3.5-5.0) g/dL Urine Color (YELLOW) Urine Appearance (CLEAR) Urine pH (5-6) Ur Specific Daniel (1.005-1.025) Urine Protein (Negative) Urine Ketones (NEGATIVE) Urine Blood (0-5) Stone/ul Urine Nitrite (NEGATIVE) Urine Bilirubin (NEGATIVE) Urine Urobilinogen (0-1) mg/dL Ur Leukocyte Esterase (NEGATIVE) Urine WBC (Auto) (0-5) /HPF Urine RBC (Auto) (0-2) /HPF U Epithel Cells (Auto) (FEW) /HPF Urine Bacteria (Auto) (NEGATIVE) /HPF Urine Mucus (Auto) (NEGATIVE) /HPF Urine Culture Reflexed (NO) Urine Glucose (NEGATIVE) mg/dL Monoscreen (Negative) Influenza Type A Ag (NEGATIVE) Influenza Type B Ag (NEGATIVE) RSV (PCR) (Negative) Group A Strep Antibody (NEGATIVE) - Progress Progress: improved, re-examined Progress Note: 03/16/18 17:54 cxr-no acute process; ct head-no acute intracranial process Counseled pt/family regarding: lab results, diagnosis, need for follow-up, rad results - Departure Time of Disposition: 17:54 Departure Disposition: Home Clinical Impression: UTI (urinary tract infection), Weakness Condition: Stable Critical Care Time: No Referrals: LANDRY LUCIA MD [Primary Care Provider] - Additional Instructions: drink plenty of fluids. take medications as prescribed. follow up with primary doctor for persistent symptoms Prescriptions: Levofloxacin [Levaquin 500 MG Tablet] 500 mg PO DAILY #10 tablet
[2018-03-16] MEDS ORDERED: Sodium Chloride 0.9% 1000 ML 1,000 ML IV STA (15:55)
[2018-03-16] MEDS ORDERED: Zofran 4 MG/2 ML VIAL IV STA (15:55)
[2018-03-16] MEDS ORDERED: Sodium Chloride 0.9% 1000 ML 1,000 ML ONE (16:05)
[2018-03-16] MEDS ORDERED: Zofran 4 MG/2 ML VIAL ONE (16:05)
--- NOTE | 2018-03-16 16:15 | XRAY ---
Indication: Fever. Comparison: December 24, 2017. Portable chest remains clear with chronic right costophrenic angle blunting. Heart is not enlarged for AP portable technique. Bony thorax intact again with mild osteopenia and degenerative changes. Impression: Stable nonacute chest with chronic features.
[2018-03-16 16:21] LABS: BASOPHIL % 0.3 % (0.0-0.4); Basophil (Absolute #) 0.03 (0-0.4); Eosinophil % 0.3 % (0.00-5.0); Eosinophil (Absolute #) 0.03 (0-0.5); Granulocytes % 66.8 % (36.0-66.0); Hemoglobin 16.2 gm/dl (12.5-18.0); Lymphocyte (Absolute #) 1.74 (1.0-4.6); Mean Cell Volume 93.2 fl (78-100); Mean Corpuscular Hemoglobin 29.6 pg (26-32); Mean Corpuscular Hgb Concent. 31.8 g/dl (32-36); Mean Platelet Volume 10.2 fl (6-9.5); Monocyte (Absolute #) 1.24 (0.0-1.3); Monocytes % 13.6 % (0.0-12.0); Platelet Count 223 K/mm3 (150-450); Red Blood Count 5.47 M/mm3 (4.1-5.6); Red Cell Distribution Width 15.5 % (11.5-14.0); White Blood Count 9.2 K/mm3 (4.0-10.5)
[2018-03-16 16:21] LABS: Lactic Acid 2.4 (0.4-2.0)
[2018-03-16 16:35] LABS: ANION GAP 15.9 MEQ/L (5-15); BILIRUBIN,TOTAL 2.1 mg/dL (0.2-1.3); Creatinine 1 1.41 mg/dL (0.66-1.25); Potassium 3.9 mmol/L (3.5-5.1); Total Protein 8.7 g/dL (6.3-8.2)
[2018-03-16 16:35] LABS: Appearance CLOUDY (CLEAR); Bacteria MODERATE /HPF (NEGATIVE); Bilirubin NEGATIVE (NEGATIVE); Blood LARGE Ery/ul (0-5); Glucose NEGATIVE (NEGATIVE); Ketones NEGATIVE (NEGATIVE); Leukocyte Esterase MODERATE (NEGATIVE); Mucus SLIGHT /HPF (NEGATIVE); Nitrite NEGATIVE (NEGATIVE); Protein,Urine Dip >=500 (Negative); RBC >101 /HPF (0-2); Specific Gravity 1.027 (1.005-1.025); Urobilinogen NEGATIVE mg/dL (0-1); WBC >100 /HPF (0-5)
--- NOTE | 2018-03-16 16:50 | XRAY ---
Indication: Confusion, weakness, and fever. Multiple contiguous axial images obtained through the head without contrast. The Comparison: December 24, 2017. Stable age-appropriate global atrophy, moderate periventricular degenerative micro-ischemia bilaterally, small remote right cerebellar infarct, smaller remote left mid yepez radiata infarct, and tiny lacunar infarcts of the right internal capsule and left sharon. No acute intracranial hemorrhage, abnormal extra-axial fluid collection, or mass effect. Fourth ventricle is midline. Bony calvarium intact. Visualized paranasal sinuses and mastoid air cells are clear. Impression: 1. Stable atrophy, degenerative micro-ischemia, and multifocal remote infarcts as detailed. 2. No new or acute intracranial abnormalities. CTDI 69.90
[2018-03-16 17:13] LABS: INFLUENZA A NEGATIVE (NEGATIVE); INFLUENZA B NEGATIVE (NEGATIVE); RESPIRATORY SYNCTIAL VIRUS NEGATIVE (Negative)
[2018-03-16] MEDS ORDERED: ROCEPHIN 1 Gm-D5w 50 ml Bag** 1 G/50 ML IVPB IV STA (17:44)
[2018-03-16] MEDS ORDERED: ROCEPHIN 1 Gm-D5w 50 ml Bag** 1 G/50 ML IVPB IV ONE (17:50)
[2018-03-16 18:39] VITALS: BP 124/80; PULSE 81; O2SAT 98
== END 2018-03-16 18:54 | disposition home or self-care (01) ==
LOC: ED 15:21
DX: N39.0 Urinary tract infection, site not specified (principal); R53.83 Other fatigue; R06.02 Shortness of breath
CPT/HCPCS: 36000; 36415; 70450; 71045; 80053; 81001; 83605; 85025; 86308; 87040; 87077; 87086; 87186; 87631; 87651; 93005; 96360; 96365; 96374; 99284; J0696; J2405